=== PATIENT | male | born 1955 ===

== ENCOUNTER 2024-12-14 09:12 | Emergency (ER) | payer MEDICARE, SELFPAY ==
--- OUTSIDE RECORDS SUMMARY | 2006-12-31 08:27 | XMS_ITS | Continuity of Care Document ---
Author Organization [facility] Address [address] [place] [address] [address] [place] [address] Phone Care Team Providers Care Wedding Decorator Name Role Phone Penn OD, Rashawn Unavailable Unavailable Procedures Procedure Date Office/outpatient Visit, Est Remove Foreign Body From Eye Advance Directives Directive Yes / No Effective Date File Name No Information Encounters Encounter Description Practice Location Reason(s) For Visit Diagnoses Date Provider Providers Copied on Encounter Office/outpat ient Visit, Est [facility], [address] [place] [address] [address], [place], [place], [id number], tel:[phone] [facility] No Information 0-200 7 Penn OD Rashawn. [address] , [address], [place], [address], [place]. tel:[phone] [facility], [address] [place] [address] [address], [place], [place], [id number], tel:[phone] [facility] No Information 3-200 7 Penn OD Rashawn. [address] , [address], [place], [address], [place]. tel:[phone] Family History Family Member Type Diagnosis Age At Onset No Information Payers Payer name Insurance type Covered democrat ID Authorgenea joya(s) Kassidy Smith [employer] [facility] [id number] Social History Type Description Quantity Date Captured Comments Sex Male Smoking Status No Information Chief Complaint And Reason For Visit No Information Reason For Referral Reason For Referral No Information History Of Present Illness Encounter Date Complaint History Of Prese nt Illness No Information Functional Status Date Functional Assessmen t No Information Instructions Date Instruction Additional Infor mation No Information Assessments Type Assessment Date No Information Patient Care Teams Name Effective Dates (start - stop) Status Members No Information
--- OUTSIDE RECORDS SUMMARY | 2024-01-13 08:00 | XMS_ITS ---
Author Organization Page S K[facility] Rol[facility] Address [address] [place] [address] Care Team Providers Care Cooking Instructor Name Role Phone Ashley Rdz Primary Care Provider UnavailCatie Betancourt Unavailable [phone] REASON FOR VISIT 1 week f/u stitch removal Encounters Encounter Location Date Provider Diagnosis [address] [facility] [address] [id number] 01/13/2024 Catie Allison Plan Of Treatment No Information Progress Notes * Sekou BRAROB:[birth year] (69 yo M)Acc No.[id number]:01/13/2024 Patient: Ziggy YEAGER Provider: Kelsea Allison DPM, DABPM :1955 A ge:68 Y S ex:Male Date:01/13/2024 Address:[address] [facility] Pcp:Ashley Rdz Subjective: * Chief Complaints: * 1 . 1 week f/u stitch removal. * Medical History: Objective: * Vitals: Assessment: Plan: * Treatment: * Billing Information: * Visit Code: * Procedure Codes: * Electronic signature of Isidra Allison DPM DABPM on 12/14/2024 at 10:02 AM INSURANCE CODER Sign off status: Pending * Provider: Kelsea Allison DPM, DABPM Date: 03/15/2023 Generated for Koby cifuentes/Tay/Kristoferitting on: 1 02/14/2024 10:02 AM INSURANCE CODER
--- OUTSIDE RECORDS SUMMARY | 2024-01-27 07:00 | XMS_ITS ---
Author Organization Page [facility]odi Rol[facility] Address [address] [place] [address] Care Team Providers Care Seed Corn Manager Production Name Role Phone Ashley Rdz Primary Care Provider UnavailCatie Betancourt Unavailable [phone] REASON FOR VISIT 2 week f/u Encounters Encounter Location Date Provider Diagnosis [facility] [address] [id number] 01/27/2024 Catie Allison Plan Of Treatment No Information Progress Notes * Sekou BRAROB:[birth year] (69 yo M)Acc No.[id number]:01/27/2024 Patient: Ziggy YEAGER Provider: Kelsea Allison DPM, DABPM :1955 A ge:68 Y S ex:Male Date:01/27/2024 Address:[address] [id number] Pcp:Ashley Rdz Subjective: * Chief Complaints: * 1 . 2 week f/u. * Medical History: Objective: * Vitals: Assessment: Plan: * Treatment: * Billing Information: * Visit Code: * Procedure Codes: * Electronic signature of Isidra Allison DPM DABPM on 12/14/2024 at 10:02 AM MOBILE APPLICATION DEVELOPMENT LEAD Sign off status: Pending * Provider: Kelsea Allison DPM, DABPM Date: 03/29/2023 Generated for Koby cifuentes/Tay/Franco on: 02/14/2024 10:02 AM MOBILE APPLICATION DEVELOPMENT LEAD
[2024-12-14 09:14] VITALS: BP 109/64; PULSE 100; RESP 24; TEMP 36.4; O2SAT 96
--- NOTE | 2024-12-14 09:45 | PC.NURSE ---
Nose clamp removed. No bleeding at this time
[2024-12-14] MEDS: OXYMETAZOLINE HCL 0.05% NAS 15 ML BTL (*BKC) 1 SPRAY NASAL (09:53)
--- OUTSIDE RECORDS SUMMARY | 2024-12-14 10:02 | XMS_ITS | Encounter Summary ---
Author Organization [facility] Address [address] [place] [address] Phone Care Team Providers Care Design Engineering Manager Name Role Phone Diaz Saucedo MD Primary Care Provider [phone] Geovanni Aviles MD Unavailable Siddharth Maurer MD Unavailable [phone] Elis Hidalgo RN Unavailable Unavailab le Reason for Visit * Reason Comments Medication Refill Encounter Details Date Type Department Care Team (Late st Contact Info) Description 07/27/2021 Refill [facility] [address] [place] [address] [place] [address] Siddharth Maurer MD [address] [place] [address] [place] [address] Medication Refill Social History Tobacco Use Types Packs/Day Years Used Date Smoking Tobacco: Never Smokeless Tobacco: Never Alcohol Use Standard Drinks/Week Comments No 0 (1 standard drink = 0.6 oz pur e alcohol) former PHQ-2 Answer Date Recorded Total Score - Questions 1-9 0 07/12 Sex and Gender Information Value Date Recorded Sex Assigned at Male 11/13/2023 11:06 AM CDT Legal Sex Male 7:06 PM CDT Gender Identity Male 11/13/2023 11:06 AM CDT Sexual Orientation Not on file COVID-19 Exposure Response Date Recorded In the last 10 days, have yo u been in contact with someone who was confirmed or suspected to have Coronavirus/COVID-19? No / Unsure 07/27/2021 9:37 AM CDT documented as of this encounter Miscellaneous Notes * Telephone Encounter - Maty So LPN - 07/27/2021 9:20 AM CDT Order printed and mailed to patient. documented in this encounter Plan of Treatment Upcoming Encounters Date Type Department Care Team (Late st Contact Info) Description 04/02/2025 8:30 AM ANTIQUER Office Visit [address] [place] [id number] Siddharth Maurer MD [address] [place] [address] [place] [address] [phone] documented as of this encounter Visit Diagnoses Diagnosis Prostate cancer Malignant neoplasm of prostate Other male erectile dysfunction documented in this encounter Additional Health Concerns Assessment Noted Time PHQ-9 Depression Total Score: 0 12/16/19 21 9:34 AM CDT documented as of this encounter Care Teams Design Engineering Manager Relationship Specialty Start Date End Date Diaz Saucedo MD PCP - General Family Medicine 09/19/15 Geovanni Aviles MD [address] [place] [address] [place] [id number] [phone] Consulting Physician Oncology 09/19/15 Siddharth Maurer MD [address] [place] [address] [address] [place] [address] Consulting Physician Radiation Oncology 03/20/17 Elis Hidalgo, RN [place] Oncology Nurse Navigator Oncology 07/15/19 03/26/24 documented as of this encounter
--- OUTSIDE RECORDS SUMMARY | 2024-12-14 10:02 | XMS_ITS | Encounter Summary ---
Author Organization [facility] Address [address] [place] [address] Phone Care Team Providers Care Stationary Engineer Refrigeration Name Role Phone Diaz Saucedo MD Primary Care Provider [phone] Geovanni Aviles MD Unavailable Siddharth Maurer MD Unavailable [phone] Elis Hidalgo RN Unavailable Unavailab le Reason for Visit * Reason Comments Medication Refill Encounter Details Date Type Department Care Team (Late st Contact Info) Description 05/10/2022 Refill [facility] [address] [place] [address] [place] [address] Siddharth Maurer MD [address] [place] [address] [place] [address] Medication Refill Social History Tobacco Use Types Packs/Day Years Used Date Smoking Tobacco: Never Smokeless Tobacco: Never Alcohol Use Standard Drinks/Week Comments No 0 (1 standard drink = 0.6 oz pur e alcohol) former PHQ-2 Answer Date Recorded Total Score - Questions 1-9 0 09/2021 Sex and Gender Information Value Date Recorded Sex Assigned at Male 11/13/2023 11:06 AM CDT Legal Sex Male 7:06 PM CDT Gender Identity Male 11/13/2023 11:06 AM CDT Sexual Orientation Not on file COVID-19 Exposure Response Date Recorded In the last 10 days, have yo u been in contact with someone who was confirmed or suspected to have Coronavirus/COVID-19? No / Unsure 04/26/2022 9:24 AM CDT documented as of this encounter Plan of Treatment Upcoming Encounters Date Type Department Care Team (Late st Contact Info) Description 04/02/2025 8:30 AM BOTTOM CAGER Office Visit [address] [place] [address] Siddharth Maurer MD [address] [place] [address] [address] [place] [address] [phone] documented as of this encounter Visit Diagnoses Diagnosis Prostate cancer Malignant neoplasm of prostate Other male erectile dysfunction documented in this encounter Additional Health Concerns Assessment Noted Time PHQ-9 Depression Total Score: 0 12/16/19 21 9:34 AM CDT documented as of this encounter Care Teams Stationary Engineer Refrigeration Relationship Specialty Start Date End Date Diaz Saucedo MD PCP - General Family Medicine 09/19/15 Geovanni Aviles MD [address] [place] [address] [place] [address] [phone] Consulting Physician Oncology 09/19/15 Siddharth Maurer MD [address] [place] [address] [place] [address] Consulting Physician Radiation Oncology 03/20/17 Elis Hidalgo RN [place] Oncology Nurse Navigator Oncology 07/15/19 03/26/24 documented as of this encounter
--- OUTSIDE RECORDS SUMMARY | 2024-12-14 10:02 | XMS_ITS | Patient Health Record ---
Author Organization Page S Kodi Rolle [facility] Address [address] [place] [address] Care Team Providers Care Utility Clerk Name Role Phone Ashley Rdz Primary Care Provider Catie Gunn Unavailable [phone] Allergies No Known Allergies Reason For Referral No Information Medications Medication SIG (Take, Route, Frequency, Duration) Notes Start Date End Date Status NIFEdipine ER Osmotic Release 90 MG Oral; Duration: 90 Days Act ofelia Montelukast Sodium 10 MG Oral; Duration: 90 Days Active Diclofenac Sodium 75 MG Oral; Duration: 90 Days Active Social History Tobacco Use: Social History Observation Description Date Details (start date - stop date) Never Smoker NA - NA Tobacco Use/Smoking Question Answer Notes Tobacco use: nonsmoker Problems Problem Type SNOMED Code ICD Code Onset Dates Problem Status W/U Status Risk Notes Problem Chronic ulcer of foot (556713962) Non-pressure chronic ulcer of other part of left foot with fat layer exposed (L97.522) Active confirmed Problem Acquired hammer toe of left foot (021689059919223 3) Hammer toe of left foot (M20.42) Active confirmed Problem Acquired hallux varus (71878400) Hallux malleus of right foot (M20.31) Active confirmed 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 Vital Signs Weight-kg 81.65 kg 08/03/2024 Height 66 in 08/03/2024 Weight 180 lbs 08/03/2024 BMI 29.05 kg/m2 08/03/2024 Encounters Encounter Location Date Provider Diagnosis [facility] [address] [id number] 12/20/2023 Catie Keegan Metatarsalgia, right foot M77.41 and Hallux malleus of right foot M20.31 [facility] [address] [id number] 12/27/2023 Catie [place] Hallux malleus of right foot M20.31 ; Srcfzlc-Bldzl-Zybk h disease G60.0 and Metatarsalgia, right foot M77.41 [facility] [address] [id number] 01/06/2024 Catie Keegan Hallux malleus of right foot M20.31 ; Yfeabvx-Cknay-Btsz h disease G60.0 and Metatarsalgia, right foot M77.41 [facility] [address] [id number] 01/13/2024 Catie Keegan Hallux malleus of right foot M20.31 ; Mpsusdy-Vkpxb-Qiqj h disease G60.0 and Metatarsalgia, right foot M77.41 [facility] [address] [id number] 02/10/2024 Catie [place] Nail dystrophy L60.3 ; Uypmhmi-Dzedu-Nhlw h disease G60.0 ; Pain in right toe(s) M79.674 ; Pain in left toe(s) M79.675 and Callus L84 [facility] [address] [id number] 03/23/2024 Catie [place] Quuxvll-Dlrmg-Yczn h disease G60.0 [facility] [address] [id number] 05/04/2024 Catie [place] Nail dystrophy L60.3 ; Hzptrov-Rrjtx-Lyov h disease G60.0 ; Pain in right toe(s) M79.674 ; Pain in left toe(s) M79.675 and Callus L84 [facility] S [facility] [address] [facility] [place], [place] [id number] 08/03/2024 Catie [place] Nail dystrophy L60.3 ; Ypxxuwt-Wvksg-Dxqw h disease G60.0 ; Pain in right toe(s) M79.674 ; Pain in left toe(s) M79.675 and Callus L84 [place] [facility] [facility] [address] [place], [place] [id number] 12/20/2023 Catie Allison [facility] [address] [place] [address] 08/04/2024 Catie Allison Assessments Encounter Date Diagnosis (ICD Code) Assessment Notes Treatment Notes Treatment Clinical Notes Section Notes 12/20/2023 Metatarsalgia, right foot (ICD-10 - M77.41) 12/27/2023 Hallux malleus of right foot (ICD-10 - M20.31) 12/27/2023 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 08/03/2024 Nail dystrophy (ICD-10 - L60.3) Manual surgical and electric debridement of toenails 1-5 b/l by 25% to achieve reduction in length and thickness. 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 No ulcer(s). 08/03/2024 Callus (ICD-10 - L84) Pared callus(es) x1 sterile 15 blade to fibrous base. No ulcer(s). 12/27/2023 Other Dressings removed. Foot is doing well. Continue with clean sock and post op shoe with crutches as needed to keep pressure off forefoot. Elevate at rest. Return in 1 week for suture removal. Call with any problems. 01/06/2024 Other Dressings removed. Foot is doing well. Continue with clean sock and post op shoe with crutches as needed to keep pressure off forefoot. Elevate at rest. Return in 1 week for suture removal. Call with any problems. 01/13/2024 Other Sutures removed . Foot is doing well. Continue with clean sock and post op shoe with crutches as needed to keep pressure off forefoot. Elevate at rest. Call with any problems. 02/10/2024 Other 03/23/2024 Other Dispensed inserts. 05/04/2024 Other Plan Of Treatment No Information Insurance Providers Payer Name Payer Address Payer Phone Subscriber Number Group Number Insured Name Patient Relationship to Insured Coverage Start Date Coverage End Date [employer] [address] [address] [place] [address] [id number] Ziggy Kelly Self - patient is the insured [employer] Medicare Supplement [address] [address] AISHA TAMAYO [phone] [id number] Seferino falk Ziggy Self - patient is the insured Medical (General) History Medical History History ICD Code asthma blood disorder CLL cancer high blood pressure heartburn lung disorder CMT Surgical History Surgery Date(Month/Year) L foot #3 partial amp. both legs both feet R forearm tenotomy R hallux / possible arthroplasa R 5th metatarsal head resection
--- OUTSIDE RECORDS SUMMARY | 2024-12-14 10:02 | XMS_ITS | Encounter Summary ---
Author Organization [facility] Address [address] [place] [address] Phone Care Team Providers Care Software Applications Engineer Name Role Phone Diaz Saucedo MD Primary Care Provider [phone] Geovanni Aviles MD Unavailable Siddharth Maurer MD Unavailable [phone] Elis Hidalgo RN Unavailable Unavailab le Reason for Visit * Reason Comments Medication Refill Encounter Details Date Type Department Care Team (Late st Contact Info) Description 07/25/2021 Refill [facility] [address] [place] [address] [place] [address] Siddharth Maurer MD [address] [place] [address] [place] [address] Medication Refill Social History Tobacco [...] st Contact Info) Description 04/02/2025 8:30 AM BASKET WEAVER Office Visit [address] [place] [address] Siddharth Maurer MD [address] [place] [address] [place] [address] documented as of this encounter Visit Diagnoses Diagnosis Prostate cancer- Primary Malignant neoplasm of prostate Other male erectile dysfunction documented in this encounter Additional Health Concerns Assessment Noted Time PHQ-9 Depression Total Score: 0 12/16/19 21 9:34 AM CDT documented as of this encounter Care Teams Software Applications Engineer Relationship Specialty Start Date End Date Diaz Saucedo MD PCP - General Family Medicine 09/19/15 Geovanni Aviles MD [address] [place] [address] [place] [address] [phone] Consulting Physician Oncology 09/19/15 Siddharth Maurer MD [address] [place] [address] [place] [address] Consulting Physician Radiation Oncology 03/20/17 Elis Hidalgo RN [place] Oncology Nurse Navigator Oncology 07/15/19 03/26/24 documented as of this encounter
--- OUTSIDE RECORDS SUMMARY | 2024-12-14 10:02 | XMS_ITS | Encounter Summary ---
Author Organization [facility] Address [address] [place] [address] Phone Care Team Providers Care Product Support Manager Name Role Phone Diaz Saucedo MD Primary Care Provider [phone] Geovanni Aviles MD Unavailable Siddharth Maurer MD Unavailable [phone] Elis Hidalgo RN Unavailable Unavailab le Reason for Visit * Reason Comments Medication Refill Encounter Details Date Type Department Care Team (Late Contact Info) Description 06/15/[address] [place] [address] Siddharth Maurer MD [address] [place] [address] Medication Refill Social History Tobacco Use [...] AM CDT Sexual Orientation Not on file documented as of this encounter Plan of Treatment Upcoming Encounters Date Type Department Care Team (Late st Contact Info) Description 04/02/2025 8:30 AM CELLAR PUMPER Office Visit [address] [place] [phone] Siddharth Maurer MD [address] [place] [address] [place] [address] documented as of this encounter Visit Diagnoses Diagnosis Prostate cancer Malignant neoplasm of prostate Other male erectile dysfunction documented in this encounter Additional Health Concerns Assessment Noted Time PHQ-9 Depression Total Score: 0 12/16/19 21 9:34 AM CDT documented as of this encounter Care Teams Product Support Manager Relationship Specialty Start Date End Date Diaz Saucedo MD PCP - General Family Medicine 09/19/15 Geovanni Aviles MD [address] [place] [address] [address] [place] [id number] [phone] Consulting Physician Oncology 09/19/15 Siddharth Maurer MD [address] [place] [address] [address] [place] [id number] Consulting Physician Radiation Oncology 03/20/17 Elis Hidalgo, RN [place] Oncology Nurse Navigator Oncology 07/15/19 03/26/24 documented as of this encounter
--- OUTSIDE RECORDS SUMMARY | 2024-12-14 10:02 | XMS_ITS | Clinical Summary ---
Author Organization [facility] Address [address] [place] [address] Phone Care Team Providers Care Cancellation Clerk Name Role Phone Diaz Saucedo MD Primary Care Provider [phone] Allergies No known active allergies Medications losartan (COZAAR) 25 mg tablet Take 25 mg by mouth every day Active NIFEdipine (PROCARDIA XL) 90 mg extended release tablet Take 90 mg by mouth every day Active albuterol HFA (VENTOLIN HFA) 90 mcg/actuation inhaler Take 2 puffs inhaled by mouth every 4 (four) hours as needed for shortness of breath Active cyclobenzaprine 10 mg tablet Take 10 mg by mouth 3 (three) times daily as needed for muscle spasm Active Active Problems Problem Noted Date Diagnosed Date Acute non-ST elevation myocardial infarction (NS LONG) 11/05/2024 Cardiogenic shock 11/05/2024 Acute HFrEF (heart failure with reduced ejection fraction) 11/05/2024 Acute pulmonary edema 11/05/2024 CAD, multiple vessel 11/05/2024 Severe mitral regurgitation 11/05/2024 Acute hypoxic respiratory failure 11/04/2024 Encounters Date Type Department Care Team Description 11/05/2024 1:00 PM CDT - 11/05/2024 2:00 PM CDT Surgery [facility] Proc [facility] [place] [address] [place] [address] Ismael Talbot MD R/L HEART CATHETERIZATION 11/04/2024 8:15 PM CDT - 11/07/2024 5:01 AM CDT Hospital Encounter [facility] [address] [place] [address] Maroof, MD Ashley Cheung Saad, MD Shodunke, Temitope, MD NSTEMI (non-ST elevated myocardial infarction) ([facility]) (Primary Dx); Acute hypoxic respiratory failure (CMS-HCC); Cardiogenic shock (CMS-HCC); Acute congestive heart failure, unspecified heart failure type (CMS-HCC) Discharge Disposition: Discharge to Short [facility] 11/04/2024 3:55 PM CDT Diagnostic Imaging Outside Facility Radiology 11/04/2024 3:05 PM CDT Diagnostic Imaging Outside Facility Radiology 11/04/2024 Orders Only Outside Facility Radiology Ajith Noe MD 11/04/2024 Orders Only Outside Facility Radiology Ajith Noe MD from Last 3 Months Social History Tobacco Use Types Packs/Day Years Used Date Smoking Tobacco: Never Assessed Sex and Gender Information Value Date Recorded Sex Assigned at Not on file Legal Sex Male 4:07 PM CDT Gender Identity Not on file Sexual Orientation Not on file Last Filed Vital Signs Vital Sign Reading Time Taken Comments Blood Pressure 121/58 11/07/2024 2:00 AM CDT Pulse 101 11/05/2024 7:48 PM CDT Temperature 38 C (100.4 F) 11/07/2024 1:00 AM CDT Respiratory Rate 14 11/07/2024 2:00 AM CDT Oxygen Saturation 96% 11/07/2024 2:00 AM CDT Inhaled Oxygen Concentration - - Weight 77 kg (169 lb 12.1 oz) 11/06/2024 6:47 AM CDT Height 170.2 cm (5' 7.01) 11/05/2024 7:48 PM CD T Body Mass Index 26.58 11/05/2024 7:48 PM CDT Plan of Treatment Health Maintenance Due Date Last Done Comments Diagnostic Colonoscopy 1953 Depression Screening 1965 DTaP/Tdap/Td Vaccines (1 - Tdap) 1972 Pneumococcal Vaccines (50+) (1 of 2 - PCV) [address] ACSVD [address] Colonography 1998 Colorectal Cancer Screening 1998 FIT-DNA (Cologuard) 1998 Fecal Immunochemical Testing (FIT) 1998 Fecal Occult Blood (FOBT) 1998 Flexible Sigmoidoscopy 1998 Screening Colonoscopy 1998 HCPOA Document on File 10/05/2003 Zoster (Shingles) Vaccine (1 of 2) 10/05/2003 RSV Vaccine (60+/) (1 - Risk 60-74 years 1-dose series) 2013 Eligible for Initial Annual Medicare Wellness Exam 04/11/2014 Fall Screening 2018 COVID-19 Vaccine ( - season) 2024 Influenza Vaccine (#1) 2024 Screening for Diabetes 11/08/2027 , 11/06/2024, 11/06/2024, Additional history exists HIB Vaccines Aged Out No longer eligi ble based on patient's age to complete this topic HPV Vaccines Aged Out No longer eligi ble based on patient's age to complete this topic Hepatitis A Vaccines Aged Out No long er eligible based on patient's age to complete this topic Hepatitis B Vaccines Aged Out No long er eligible based on patient's age to complete this topic IPV Vaccines Aged Out No longer eligi ble based on patient's age to complete this topic Meningococcal B Vaccine Aged Out No l onger eligible based on patient's age to complete this topic Meningococcal Vaccine (ACWY) Aged Out No longer eligible based on patient's age to complete this topic Rotavirus Vaccines Aged Out No longer eligible based on patient's age to complete this topic Procedures Procedure Name Priority Date/Time Associated Diagnosis Comments MAGNESIUM Routine 11/07/2024 1:36 AM CDT COMPREHENSIVE METABOLIC PANEL Routine 11/07/2024 1:36 AM CDT CBC W/O DIFF Routine 11/07/2024 1:36 AM CDT GLUCOSE, POC Routine 11/06/2024 11:25 PM CDT UFH LEVEL, ANTI-XA Timed 11/06/2024 10 :28 PM CDT GLUCOSE, POC Routine 11/06/2024 7:25 PM CDT GLUCOSE, POC Routine 11/06/2024 5:19 PM CDT LOWER RESPIRATORY CULTURE Routine 11/06/2024 12:30 PM CDT SPUTUM SCREEN Routine 11/06/2024 12:30 PM CDT GLUCOSE, POC Routine 11/06/2024 12:06 PM CDT ECG 12 LEAD STAT 11/06/2024 11:40 AM CDT TSH Urgent 11/06/2024 9:35 AM CDT PROCALCITONIN Timed 11/06/2024 9:35 AM CDT LIPID PANEL Timed 11/06/2024 9:35 AM CDT UFH LEVEL, ANTI-XA Timed 11/06/2024 9: 35 AM CDT GLUCOSE, POC Routine 11/06/2024 7:48 AM CDT ABG 11/06/2024 3:45 AM CDT ABG 11/06/2024 3:45 AM CDT GLUCOSE, POC Routine 11/06/2024 3:26 AM CDT UFH LEVEL, ANTI-XA Timed 11/06/2024 2: 15 AM CDT CBC W/DIFF Timed 11/06/2024 2:15 AM CDT COMPREHENSIVE METABOLIC PANEL Timed 11/06/2024 2:15 AM CDT MAGNESIUM Timed 11/06/2024 2:15 AM CDT ABG 11/06/2024 1:41 AM CDT GLUCOSE, POC Routine 11/05/2024 11:15 PM CDT XR CHEST AP OR PA ONLY STAT 8:34 PM CDT GLUCOSE, POC Routine 11/05/2024 7:35 PM CDT UFH LEVEL, ANTI-XA Timed 11/05/2024 7: 09 PM CDT INTRA-AORTIC BALLOON PUMP INSERTION Routine 11/05/2024 4:30 PM CDT NSTEMI (non-ST elevated myocardial infarction) (CMS-HCC) Acute hypoxic respiratory failure (CMS-HCC) Cardiogenic shock (CMS-HCC) Acute congestive heart failure, unspecified heart failure type (CMS-HCC) PROJECT MANAGER/DESIGN MANAGER US VENOUS ACCESS Routine 11/05/2024 4:30 PM CDT NSTEMI (non-ST elevated myocardial infarction) (CMS-HCC) Acute hypoxic respiratory failure (CMS-HCC) Cardiogenic shock (CMS-HCC) Acute congestive heart failure, unspecified heart failure type (CMS-HCC) R/L HEART CATHETERIZATION Routine 11/05/2024 4:30 PM CDT NSTEMI (non-ST elevated myocardial infarction) (CMS-HCC) Acute hypoxic respiratory failure (CMS-HCC) Cardiogenic shock (CMS-HCC) Acute congestive heart failure, unspecified heart failure type (CMS-HCC) COMPLETE ADULT ECHO WITH CONTRAST Routine 11/05/2024 10:37 AM CDT GLUCOSE, POC Routine 11/05/2024 7:33 AM CDT UFH LEVEL, ANTI-XA STAT 11/05/2024 6: 09 AM CDT ABG 11/05/2024 5:26 AM CDT PTT Timed 11/05/2024 4:41 AM CDT ECG 12 LEAD STAT 11/05/2024 4:22 AM CDT GLYCO HB A1C Urgent 11/05/2024 3:36 AM CDT CBC W/O DIFF Routine 11/05/2024 3:36 AM CDT GLUCOSE, POC Routine 11/05/2024 3:[address] CTA PE CHEST Routine 11/05/2024 2:33 AM CDT ECG 12 LEAD STAT 11/05/2024 12:31 AM CDT GLUCOSE, POC Routine 11/05/2024 12:15 AM CDT BLOOD CULTURE, ROUTINE Routine 11:28 PM CDT BLOOD CULTURE, ROUTINE Routine 11:28 PM CDT GLUCOSE, POC Routine 11/04/2024 11:22 PM CDT MRSA SCREENING BY PCR Routine 11/04/2024 10:31 PM CDT PROTIME (INR) STAT 11/04/2024 10:07 PM CDT UFH LEVEL, ANTI-XA STAT 11/04/2024 10 :07 PM CDT PTT STAT 11/04/2024 10:07 PM CDT XR CHEST AP OR PA ONLY STAT 9:17 PM CDT PROCALCITONIN STAT 11/04/2024 9:12 PM CDT B-NATRIURETIC PEPTIDE STAT 11/04/2024 9:12 PM CDT MAGNESIUM STAT 11/04/2024 9:12 PM CDT COMPREHENSIVE METABOLIC PANEL STAT 11/04/2024 9:12 PM CDT CBC W/DIFF STAT 11/04/2024 9:12 PM CDT TROPONIN, HIGH SENSITIVITY STAT 11/04/2024 9:12 PM CDT TRIGLYCERIDES Routine 11/04/2024 9:12 PM CDT ECG 12 LEAD STAT 11/04/2024 8:55 PM CDT ABG 11/04/2024 8:31 PM CDT GLUCOSE, POC Routine 11/04/2024 8:30 PM CDT XR CHEST OUTSIDE STUDY Routine 5 4:50 PM CDT XR CHEST OUTSIDE STUDY Routine 5 4:50 PM CDT from Last 3 Months Results * (ABNORMAL) COMPREHENSIVE METABOLIC PANEL (11/07/2024 1:36 AM CDT) Only the most recent of3 resultswithin the time period is included. CALCIUM 7.9(L) 8.9 - 10.6 mg/dL [facility] GLUCOSE 114(H) 74 - 100 mg/dL [facility] BUN 63(H) 8 - 26 mg/dL [facility] CREATININE 2.07(H) 0.70 - 1.30 mg/dL [facility] TOTAL PROTEIN 6.1 6.0 - 8.0 g/dL [facility] ALBUMIN 2.2(L) 3.4 - 4.8 g/dL [facility] BILIRUBIN, TOTAL 0.2 0.2 - 1.2 mg/dL [facility] AST 213(H) 9 - 43 U/L [facility] ALT 159(H) 0 - 45 U/L [facility] ALKALINE PHOSPHATASE 63 40 - 150 U/L [facility] SODIUM 144 136 - 145 mmol/L [facility] POTASSIUM 3.6 3.5 - 5.1 mmol/L [facility] CHLORIDE 104 98 - 107 mmol/L [facility] CO2 29.0 22.0 - 29.0 mmol/L [facility] GFR: CKD-EPI 2020 CREAT 34 arbitrary unit [facility] Comment: eGFR of 90 or higher is in the normal range eGFR of 60-89 may mean early-stage kidney disease eGFR of 15-59 may mean kidney disease eGFR below 15 may mean kidney failure NOTE: The GFR estimate is reported in ml/min/1.73 square meters. Effective 07/12/22 the reported GFR estimate is calculated using the CKD-EPI 2020 equation and is intended only for the assessment of chronic kidney disease. [facility], [address] [place] [address] 11/07/2024 1:36 AM CDT 11/07/2024 2:31 AM CDT Nolvia Johnelizabeth MUSTAFA HEM/CHEM/IMMUN-BLOOD Final Resu lt Performing Organization Address [facility]/ZIP Co de Phone Number [facility] [address] [place] [phone], [place] * MAGNESIUM (11/07/2024 1:36 AM CDT) Only the most recent of3 resultswithin the time period is included. MAGNESIUM 2.6 1.6 - 2.6 mg/dL [facility] Comment:[facility], [address] [place] [phone] 11/07/2024 1:36 AM CDT 11/07/2024 2:31 AM CDT Nolvia Johnelizabeth CANTU BS HEM/CHEM/IMMUN-BLOOD Final Resu lt Performing Organization Address [facility] Co de Phone Number [facility] [address] [place] [phone], [place] * (ABNORMAL) CBC W/O DIFF (11/07/2024 1:36 AM CDT) Only the most recent of2 resultswithin the time period is included. WBC 11.25(H) 4.00 - 11.00 10*3/uL [facility] RBC 4.59 4.10 - 5.70 10*6/uL [facility] HGB 12.0 12.0 - 18.0 g/dL [facility] HCT 37.3 37.0 - 51.0 % [facility] MCV 81.3 80.0 - 100.0 fL [facility] MCH 26.1(L) 27.0 - 33.0 pg [facility] MCHC 32.2 32.0 - 36.0 g/dL [facility] RDW 14.0 12.0 - 15.0 % [facility] RDW-SD 41.1 36.7 - 46.1 fL [facility] PLATELET 155 140 - 400 10*3/uL [facility] MPV 12.1(H) 9.0 - 12.0 fL [facility] Comment:[facility], [address] [place] [phone] 11/07/2024 1:36 AM CDT 11/07/2024 2:31 AM CDT Narrative [facility] - 11/07/2024 2:42 AM CDT Heparin Therapy Monitoring us Miroslava CANTU BS HEM/CHEM/IMMUN-BLOOD F inal Result [facility] [address] [place] [phone], [place] * (ABNORMAL) GLUCOSE, POC (11/06/2024 11:25 PM CDT) Only the most recent of13 resultswithin the time period is included. GLUCOSE, POC 129(H) 60 - 99 mg/dL [facility] Comment:[facility], [address] [place] [phone] 11/06/2024 11:2 5 PM CDT 11/06/2024 11:28 PM CDT us Lourdes Zuluaga MD HEM/CHEM/IMMUN-BLOOD Final Result Performing Organization Address [facility]/ZIP Co de Phone Number [facility] [address] [place] [phone], * UFH LEVEL, ANTI-XA (11/06/2024 10:28 PM CDT) Only the most recent of6 resultswithin the time period is included. ANTI-XA, UFH 0.4 IU/mL [facility] Comment: REFERENCE RANGE: UFH therapeutic range: Standard Intensity/DDZ-ON-Mzqlenkm-Bridging-ACS: 0.4-0.7 IU/mL Low Intensity/Cerbrovascular: 0.4-0.5 IU/mL [facility], [address] [place] [phone] 11/06/2024 10:2 8 PM CDT 11/06/2024 10:51 PM CDT Narrative [facility] - 11/06/2024 11:11 PM CDT heparin gtt titration Lourdes Zuluaga MD HEM/CHEM/IMMUN-BLOOD Final Result Performing Organization Address [facility] Co de Phone Number [facility] [address] [place] [phone], * (ABNORMAL) SPUTUM SCREEN (11/06/2024 12:30 PM CDT) Pathologist [facility] SPUTUM SCREEN Few squamous epithelial cells/lpf Few PMNs No organisms seen -RESLO (Lower Respiratory Culture) has been ordered. (A) [facility] SPECIMEN FROM TRACHEA OBTAINED BY ASPIRATION / Unknown 11/06/2024 12:30 PM CDT 11/06/2024 1:05 PM CDT Narrative [facility] - 11/06/2024 1:44 PM CDT [facility] [address] [place] [address] [phone] Source: Tracheal Aspirate Site: Nolvia CANTU BS MICROBIOLOGY Final Result Performing Organization Address [facility]/ZIP Co de Phone Number [facility] [address] [place] [phone], * LOWER RESPIRATORY CULTURE (11/06/2024 12:30 PM CDT) Pathologist [facility] LOWER RESPIRATORY CULT No growth 2 days. [facility] SPECIMEN FROM TRACHEA OBTAINED BY ASPIRATION / Unknown 11/06/2024 12:30 PM CDT 11/06/2024 1:05 PM CDT Narrative [facility] - 11/08/2024 9:08 AM CDT [facility] [address] [place] [address] [phone] Source: Tracheal Aspirate Site: us Nolvia MUSTAFA MICROBIOLOGY Final Result Performing Organization Address City/[facility]/ZIP Co de Phone Number [facility] [address] [place] [phone], * ECG 12 LEAD (11/06/2024 11:40 AM CDT) Only the most recent of4 resultswithin the time period is included. Pathologist [facility] REPORT COMPONENT Study Date: 11/06/2024 Confirmation Date: 11/06/2024 Test Reason : afib Vent. Rate : 120 BPM Atrial Rate : * BPM P-R Int : * ms QRS Dur : 108 ms QT Int : 350 ms P-R-T Axes : * 40 146 degrees QTc Int : 494 ms Atrial flutter with variable block Low voltage QRS ST & T wave abnormality, consider anterolateral ischemia Abnormal ECG Referred By: NOLVIA RICHEY Confirmed By: Claudio Corey MD [facility] 11/06/2024 11:4 0 AM CDT us Nolvia [facility] Final Resul t Performing Organization Address City/[facility]/ZIP Co de Phone Number [address] [phone], * PROCALCITONIN (11/06/2024 9:35 AM CDT) Only the most recent of2 resultswithin the time period is included. Pathologist [facility] PROCALCITONIN VALUE 0.78 ng/mL [facility] PROCALCITONIN COMMENTS see below [facility] Comment: Procalcitonin levels greater than or equal to 0.5 and less than 2.0 indicates a MODERATE RISK FOR PROGRESSION TO SEVERE SYSTEMIC INFECTION (severe sepsis/septic shock). Procalcitonin Value Interpretation < or = 0.5 ng/ml Low risk for progression to severe systemic infection. Systemic infection is not likely, local bacterial infection is possible. >0.5 and < or = Moderate risk for progression to severe 2.0 ng/ml systemic infection. Systemic infection is possible. >2 ng/ml High risk for progression to severe systemic infection. Systemic infection is likely unless other causes for elevated values are known. >10 ng/ml High likelihood of severe sepsis or septic shock. Correlate all values with clinical findings. Re-assessment of procalcitonin in 6-24 hours may be indicated. Reference ranges are applicable from 3 days after . This is a quantitative Immumoluminometric assay (BERT) to determine PROCALCITONIN levels in human plasma. [facility], [address] [place] [phone] 11/06/2024 9:35 AM CDT 11/06/2024 10:25 AM CDT Narrative [facility] - 11/06/2024 10:58 AM CDT ADD ON Storage down, unable to retrieve sample, please draw. us Nolvia John MUSTAFA HEM/CHEM/IMMUN-BLOOD Final Resu lt [facility] [address] [place] [phone], * (ABNORMAL) LIPID PANEL (11/06/2024 9:35 AM CDT) [facility] CHOLESTEROL, TOTAL 205(H) 0 - 200 mg/dL [facility] Comment: Child Range (mg/dL) : Desirable < 170 Borderline 170 to 199 High >= 200 Adult Range: Desirable < 200 Borderline 200 to 239 High >= 240 TRIGLYCERIDES 183 <150 mg/dL [facility] Comment: Normal < 150 Borderline High 150 to 199 High 200 to 499 Very High >= 500 The National Cholesterol Education Program (NCEP) Adult Treatment Panel III Report recommends the classification shown above. Laboratories should follow recommendations for lipid ranges effective in their locale if they differ from those of the NCEP. HDL CHOLESTEROL 51 40 - 60 mg/dL [facility] Comment: The National Cholesterol Education Program (NCEP) recommends using fasting specimens for a lipoprotein profile. If the specimen is nonfasting, only the values for total cholesterol and HDL cholesterol are usable. LDL CHOLESTEROL 117 <100 mg/dL [facility] Comment:[facility], [address] [place] [phone] 11/06/2024 9:35 AM CDT 11/06/2024 10:25 AM CDT [facility] - 11/06/2024 10:38 AM CDT ADD ON Storage down, unable to retrieve sample, please draw. Javon MUSTAFA HEM/CHEM/IMMUN-BLOOD Final R esult Performing Organization Address City/[facility]/ZIP Co de Phone Number [facility] [address] [place] [phone], [place] * TSH (11/06/2024 9:35 AM CDT) TSH 0.865 0.350 - 4.940 u[IU]/mL [facility] Comment:[facility], [address] [place] [address] 11/06/2024 9:35 AM CDT 11/06/2024 2:04 PM CDT [facility] - 11/06/2024 2:38 PM CDT ADD ON Storage down, unable to locate specimen. Please draw. us Javon MUSTAFA HEM/CHEM/IMMUN-BLOOD Final R esult Performing Organization Address [facility]/ZIP Co de Phone Number [facility] [address] [place] [phone], [place] * (ABNORMAL) ABG (11/06/2024 3:45 AM CDT) Only the most recent of5 resultswithin the time period is included. pH 7.334(L) 7.350 - 7.450 [facility] pCO2 47.1(H) 35.0 - 45.0 mmHg [facility] pO2 129.1(H) 80.0 - 100.0 mmHg [facility] Lactate 1.15 0.50 - 2.00 mmol/L [facility] tHb 14.3 12.0 - 18.0 g/dL [facility] O2HB 97.2 % [facility] COHb 0.3(L) 0.5 - 1.5 % [facility] MetHb 0.6 0.0 - 1.5 % [facility] HHB 1.9 % [facility] SpO2 98.1 % [facility] HCO3 24.5 22.0 - 26.0 mmol/L [facility] BE -1.7 -2.0 - 2.0 mmol/L [facility] Hct 42 37 - 50 % [facility] FIO2 60.0 % [facility] Modified Kunal test POS [facility] Mode VC/AC [facility] Patient room [id number] [facility] Sample type BLDA [facility] Drawn date and time 11/06/2024 3:41:55 AM [facility] Sampling site RR [facility] 11/06/2024 3:45 AM CDT Narrative [facility] - 11/06/2024 3:45 AM CDT The Hematocrit and Hemoglobin values reported on ABG results may vary from those reported from the main Laboratory, due to different testing methodologies used. For transfusion purposes, please use the main Laboratory for Hematocrit and Hemoglobin values. us Veronica Lovett MD RESP-DIAGN/ASSESS Final Resul t [facility] [address] [place] [address], * (ABNORMAL) CBC W/DIFF (11/06/2024 2:15 AM CDT) Only the most recent of2 resultswithin the time period is included. WBC 14.02(H) 4.00 - 11.00 10*3/uL [facility] RBC 5.08 4.10 - 5.70 10*6/uL [facility] HGB 13.5 12.0 - 18.0 g/dL [facility] HCT 43.0 37.0 - 51.0 % [facility] MCV 84.6 80.0 - 100.0 fL [facility] MCH 26.6(L) 27.0 - 33.0 pg [facility] MCHC 31.4(L) 32.0 - 36.0 g/dL [facility] RDW 14.2 12.0 - 15.0 % [facility] RDW-SD 43.8 36.7 - 46.1 fL [facility] PLATELET 189 140 - 400 10*3/uL [facility] MPV 11.5 9.0 - 12.0 fL [facility] SEG 73.2 % [facility] LYMPHOCYTE 17.4 % [facility] MONOCYTE 8.9 % [facility] EOSINOPHIL 0.0 % [facility] BASOPHIL 0.1 % [facility] IMMATURE GRANULOCYTE 0.4 % [facility] ABSOLUTE NEUTR 10.27(H) 1.60 - 7.70 10*3/uL [facility] ABSOLUTE LYMPH 2.44 1.00 - 4.90 10*3/uL [facility] ABSOLUTE MONO 1.25(H) 0.00 - 1.10 10*3/uL [facility] ABSOLUTE EOS 0.00 0.00 - 0.50 10*3/uL [facility] ABSOLUTE BASO 0.01 0.01 - 0.20 10*3/uL [facility] ABSOLUTE IMMATURE GRANULOCYTE 0.05 0.00 - 0.09 10*3/uL [facility] Comment:[facility], [address] [place] [phone] 11/06/2024 2:15 AM CDT 11/06/2024 2:50 AM CDT us Blanca CANTU BS HEM/CHEM/IMMUN-BLOOD Final R esult [facility] [address] [place] [phone], [place] * XR CHEST AP OR PA ONLY (11/05/2024 8:34 PM CDT) Only the most recent of2 resultswithin the time period is included. Anatomical Region Laterality Modality Chest N/A Digital Radiogra phy 11/05/2024 8:19 PM CDT Narrative 11/06/2024 12:45 AM CDT Accession Exam Completed Date/Time [id number] XR CHEST AP OR PA ONLY 11/05/2024 20:34 Requesting: KEITH PONCE XR CHEST AP OR PA ONLY PERFORMED ON 11/05/2024 8:19 PM HISTORY: [place] placement confirmation COMPARISON: Chest radiograph 11/04/2024 FINDINGS/ IMPRESSION: Compared to prior day chest radiograph: Interval placement of a [place] catheter which terminates in the right pulmonary artery. Increased airspace attenuation throughout the right lung compatible with worsening edema/infection. Stable position of endotracheal tube, enteric tube, and esophageal temperature probe. Electronically Signed and Authenticated by Marvel Oro MD 11/06/2024 00:45 Procedure Note Marvel Oro MD - 11/06/2024 Accession Exam CompletedDate/Time [id number] XR CHEST AP OR PA ONLY 520:34 Requesting: KEITH PONCE XR CHEST AP OR PA ONLY PERFORMED ON 11/05/2024 8:19 PM HISTORY: [place] placement confirmation COMPARISON: Chest radiograph 11/04/2024 FINDINGS/ IMPRESSION: Compared to prior day chest radiograph: Interval placement of a [place] catheter which terminates in the rightpulmonary artery. Increased airspace attenuation throughout the right lung compatible withworsening edema/infection. Stable position of endotracheal tube, enteric tube, and esophagealtemperature probe. Electronically Signed and Authenticated by Marvel Oro MD 11/06/2024 00:45 us Keith BARRIOS CHEST X-RAY Final Result * R/L HEART CATHETERIZATION, PROJECT MANAGER/DESIGN MANAGER US VENOUS ACCESS, INTRA-AORTIC BALLOON PUMP INSERTION (11/05/2024 4:30 PM CDT) Anatomical Region Laterality Modality X-Ray Angiograph y Narrative 11/05/2024 4:30 PM CDT Right atrial pressure is severely elevated. Pulmonary capillary wedge pressure is severely elevated with a prominent V-wave. Cardiac index is severely reduced. Severe multivessel coronary disease with: 70-80% stenosis of proximal to mid LAD. 99% stenosis of mid circumflex. 90% stenosis of mid RCA. Recommend heart team consultation for consideration of CABG plus MVR. IABP inserted for temporary hemodynamic stabilization. Good improvement noted in PA pressures post IABP insertion. Coronary Findings Diagnostic Dominance: Right Left Main: Diagnostic: The vessel was visualized by angiography, is large and is angiographically normal. Left Anterior Descending: Diagnostic: The vessel was visualized by angiography and is large. There is moderate disease throughout the vessel. The vessel is severely calcified. Prox LAD to Mid LAD lesion is 75% stenosed. The lesion is diffuse and segmental. First Diagonal Branch: The vessel is small. There is mild diffuse disease throughout the vessel. Second Diagonal Branch: The vessel is large. The vessel exhibits minimal luminal irregularities. Left Circumflex: Diagnostic: The vessel was visualized by angiography and is moderate in size. There is severe disease throughout the vessel. Prox Cx to Mid Cx lesion is 99% stenosed. The lesion is diffuse and segmental. First Obtuse Marginal Branch: The vessel is small. There is moderate diffuse disease throughout the vessel. Second Obtuse Marginal Branch: The vessel is moderate in size. There is moderate diffuse disease throughout the vessel. Right Coronary Artery: Diagnostic: The vessel was visualized by angiography and is large. There is severe disease throughout the vessel. Mid RCA to Dist RCA lesion is 90% stenosed. The lesion is diffuse. The lesion is severely calcified. Right Posterior Descending Artery: The vessel is large. There is mild diffuse disease throughout the vessel. RPDA lesion is 90% stenosed. The lesion is focal. First Right Posterolateral Branch: The vessel is moderate in size. There is mild diffuse disease throughout the vessel. Intervention No interventions have been documented. Left Ventricle Left ventricular end diastolic pressure was 48 mm Hg, post-A. Aortic Valve No pullback gradient across the aortic valve. Intraprocedure The risks, benefits, alternatives, and expected outcomes were explained in full to the next of kin and/or POA. The next of kin and/or POA verbalized understanding and wanted to proceed. Informed written consent was obtained and placed in the chart. The patient was brought to the Cardiac Catheterization Laboratory and prepped and draped in the usual sterile fashion. Time out was performed.. The patient received general anesthesia. The procedure was considered emergent based upon the clinical presentation. The patient was noted to have unstable (shock) hemodynamics at the start of the procedure. Arterial access: right radial. Right femoral for balloon pumpUnder ultrasound, the vessel was found to be patent. Using real-time ultrasound for guidance, the best access site was identified following which a single front wall puncture of the vessel was performed and the access needle was identified in the vessel lumen. A permanent image of the same was created and stored. Venous access: right internal jugular vein. Under ultrasound, the vessel was found to be patent. Using real-time ultrasound for guidance, the best access site was identified following which a single front wall puncture of the vessel was performed and the access needle was identified in the vessel lumen. A permanent image of the same was created and stored. Hemostasis was successfully obtained using TR Band compression device. Estimated blood loss is: Minimal. Syntax Score: >33 high IABP Insertion report: Right groin area was prepped in sterile fashion. Local anesthetic was administered with 1% lidocaine. Using micropuncture technique, retrograde right common femoral arterial access was obtained with placement of the 8.5 [place] balloon pump sheath sheath. An 0.25 IABP wire was then inserted, IABP was aspirated leaving one-way valve in place. The IABP was advanced over the guidewire into its proper position in the descending thoracic aorta, with the IAB catheter tip approximately 2 cm distal to the left subclavian artery. This was confirmed and directly visualized on fluoroscopy. The guidewire was removed. The inner lumen was aspirated and flushed. The IABP was connected to the pump. Counterpulsation was commenced at 1:1 augmentation. The pump was securely sutured in place. Distal pulses were palpated and found to be normal at the end of the procedure. Blood Products Blood Products Given: No Final Disposition Final Disposition of Patient: ICU Final Condition: stable and critical. Right Heart Cath Hemodynamics: Rhythm: sinus tachycardia Average heart rate during the procedure: 115 bpm. Right atrial pressure: 13 mmHg Right ventricular pressure: 60/14 mmHg Pulmonary artery pressure: 63/35 mmHg with a mean of 48 mmHg Pulmonary capillary wedge pressure: 39 mmHg. V wave pressure: 50 mm Hg Transpulmonary gradient: 9 mmHg Pulmonary vascular resistance: 2.8 Wood Units Systemic vascular resistance: 1481 dsc-5 Oxygen Saturations: Pulmonary artery: 55% Aorta: 88% Cardiac Outputs: Indirect Raquel Cardiac Output: 3.62 L/min Indirect Raquel Cardiac Index: 1.9 L/min/m2 Post IABP insertion: PA pressure 43/15 (26) mm Hg Contrast Max Creatinine Clearance = 54 Contrast Max = 189 us Bismark Salter MD PROJECT MANAGER/DESIGN MANAGER Final Result * COMPLETE ADULT ECHO WITH CONTRAST (11/05/2024 10:37 AM CDT) LVEF - ECHO 15 - 20% [facility] Anatomical Region Laterality Modality Ultrasound 11/05/2024 9:53 AM CDT Impressions 11/05/2024 11:16 AM CDT FINAL REPORT 11/05/2024 Patient Name: MAYKEL [facility] Num: [id number] Ordering Physician: MIROSLAVA UREÑA History: NSTEMI, Acute RF Patient Age [age] years old Order Number [id number] Patient Height 67.01 in Patient Weight 170.86 lbs Systolic Pressure 80 mmHg Diastolic Pressure 53 mmHg Heart Rate 109 bpm BSA 1.9 m^2 Procedure: Complete 2D echo with spectral/color Doppler and Definity [id number] Reason for Study: Concern for new onset heart failure with NSTEMI Interpretation Summary: The left ventricular systolic function is severely reduced. Ejection Fraction = 15 - 20%. There is akinesis of the basal to distal inferior, inferoseptal, lateral wall. Remaining segments hypokinetic. There is apical no thrombus. The right ventricle is normal size. The right ventricular systolic function is mild to moderately reduced . The left atrium is moderately enlarged. The right atrium is normal in size. There is a central jet causing severe mitral regurgitation. There is systolic reversal of pulmonary veins. The ERO by PISA is 0.83 cm2. The MR is likely due to lack of leaflet coaptation. Recommend MATTHEW for further evaluation. There is moderate tricuspid regurgitation. Right ventricular systolic pressure is elevated at 50-59mmHg. No pericardial effusion. IVC measures 1.[address] Salter and Dr Thompson informed. Narrative 11/05/2024 11:16 AM CDT Echo Findings Aortic Valve: Aortic valve is mildly thickened. The aortic valve is not well visualized. The aortic root is normal size. No aortic stenosis. There is no aortic regurgitation. Mitral Valve: Mitral valve thickening consistent with calcification and/or fibrosis. There is no mitral stenosis. There is a central jet causing severe mitral regurgitation. There is systolic reversal of pulmonary veins. The ERO by PISA is 0.83 cm2. The MR is likely due to lack of leaflet coaptation. Recommend MATTHEW for further evaluation. Tricuspid Valve: The tricuspid valve is not well visualized. There is moderate tricuspid regurgitation. Right ventricular systolic pressure is elevated at 50-59mmHg. Pulmonic Valve: The pulmonic valve is not well visualized. There is no significant pulmonary regurgitation. Right Ventricle: The right ventricle is normal size. The right ventricular systolic function is mild to moderately reduced . Right Atrium: The right atrium is normal in size. Left Atrium: The left atrium is moderately enlarged. Left Ventricle: The left ventricle is normal in size. There is normal left ventricular wall thickness. The left ventricular systolic function is severely reduced. Ejection Fraction = 15 - 20% There is akinesis of the basal to distal inferior, inferoseptal, lateral wall. Remaining segments hypokinetic. There is no thrombus. Pericardium: No pericardial effusion. Diastology: E / E' = Lat= 20.5 Med= 23.0 LA Volume Index = 47.5cc/m2. E / E' ratio is elevated suggestive of increased left atrial filling pressures. Greater Vessels: IVC measures 1.9 cm. Miscellaneous Findings: The contrast agent Definity was used to enhance this study. Tech Comments: Dr. Salter and Dr. Thompson present at bedside. Critical findings communicated. Echo Measurements MMode 2D Measurements and Calculations: Ao root diam 3 cm asc Aorta Diam 3.4 cm IVSd 1.1 cm LA dimension 4 cm LVIDd 5 cm LVIDs 4.7 cm LVLd ap2 9.5 cm LVLd ap4 9.4 cm LVLs ap2 8.5 cm LVLs ap4 8.6 cm LVOT area(traced) 3.1 cm^2 LVOT diam 2 cm LVPWd 1.1 cm RA A4Cs_phl 14.9 cm^2 RV Base_phl 4 cm RV Length_phl 7.6 cm RV Mid_phl 2.5 cm RVDd 3.7 cm RVIDd/LVIDd_phl 0.74 TAPSE_phl 0.91 cm Doppler Measurements and Calculations: MV dec time 0.09 sec PA acc time 0.07 sec Ao max PG 2.6 mmHg Ao mean PG 1.3 mmHg Ao V2 max 80.9 cm/sec Ao V2 mean 54.7 cm/sec Ao V2 VTI 8.5 cm AV VR_phl 0.67 ROYCE(VTI)/BSA_phl 1.1 Lat Peak E' Reji 5.1 cm/sec LV V1 max PG 1.2 mmHg LV V1 mean PG 0.62 mmHg LV V1 max 54 cm/sec LV V1 mean 35.2 cm/sec LV V1 VTI 5.6 cm Med Peak E' Reji 4.6 cm/sec MR max PG 45.3 mmHg MR max reji 336.1 cm/sec MR mean PG 22.7 mmHg MR mean reji 222 cm/sec MR VTI 61.7 cm MV A max reji 43.1 cm/sec MV dec slope 1148 cm/sec^2 MV E max reji 105 cm/sec MV max PG 6.7 mmHg MV mean PG 2.7 mmHg MV P1/2t-pr_phl 26.8 msec MV V2 max 129.3 cm/sec MV V2 mean 76.1 cm/sec MV V2 VTI 23.2 cm RV S Vel_phl 7.9 cm/sec TR max PG 42.6 mmHg TR max reji 326.5 cm/sec Other Measurements and Calculations: Ao max PG (full) 1.5 mmHg Ao mean PG (full) 0.71 mmHg Ao root area 6.9 cm^2 ROYCE(I,A) 2.2 cm^2 ROYCE(I,D) 2.2 cm^2 ROYCE(V,A) 2.2 cm^2 ROYCE(V,D) 2.2 cm^2 FS 7.2 % IVS/LVPW 0.99 LA/Ao 1.4 LVOT area 3.3 cm^2 MV E/A 2.4 MVA(VTI) 0.79 cm^2 PA pr(Accel) 45.7 mmHg SI(Ao) 30.7 ml/m^2 SI(LVOT) 9.7 ml/m^2 SV(Ao) 58.1 ml SV(LVOT) 18.3 ml LVIDd / RVDd 1.4 {ratio} InterpretingPhysician: Casi Floyd MD electronically signed on 2024-11-05 11:16:08.807 Personnel Interviewer: Millie Woodward BERKLEY Procedure Note Caleb Floyd MD - 11/05/2024 Echo Findings Aortic Valve: Aortic valve is mildly thickened. The aortic valve is not well visualized. The aortic root is normal size. No aortic stenosis. There is no aortic regurgitation. Mitral Valve: Mitral valve thickening consistent with calcification and/orfibrosis. There is no mitral stenosis. There is a central jet causing severe mitral regurgitation. Thereis systolic reversal of pulmonary veins. The ERO by PISA is 0.83 cm2.The MR is likely due to lack of leaflet coaptation. Recommend MATTHEW for further evaluation. Tricuspid Valve: The tricuspid valve is not well visualized. There is moderate tricuspid regurgitation. Right ventricular systolic pressure is elevated at 50-59mmHg. Pulmonic Valve: The pulmonic valve is not well visualized. There is no significant pulmonary regurgitation. Right Ventricle: The right ventricle is normal size. The right ventricular systolic function is mild to moderately reduced. Right Atrium: The right atrium is normal in size. Left Atrium: The left atrium is moderately enlarged. Left Ventricle: The left ventricle is normal in size. There is normal left ventricular wall thickness. The left ventricular systolic function is severely reduced. Ejection Fraction = 15 - 20% There is akinesis of the basal to distal inferior, inferoseptal,lateral wall. Remaining segments hypokinetic. There is no thrombus. Pericardium: No pericardial effusion. Diastology: E / E' = Lat= 20.5 Med= 23.0 LA Volume Index = 47.5cc/m2. E / E' ratio is elevated suggestive of increased left atrialfilling pressures. Greater Vessels: IVC measures 1.9 cm. Miscellaneous Findings: The contrast agent Definity was used to enhance this study. Tech Comments: Dr. Salter and Dr. Thompson present at bedside. Critical findings communicated. Echo Measurements MMode 2D Measurements and Calculations: Ao root diam 3 cm asc Aorta Diam 3.4 cm IVSd 1.1 cm LA dimension 4 cm LVIDd 5 cm LVIDs 4.7 cm LVLd ap2 9.5 cm LVLd ap4 9.4 cm LVLs ap2 8.5 cm LVLs ap4 8.6 cm LVOT area(traced) 3.1 cm^2 LVOT diam 2 cm LVPWd 1.1 cm RA A4Cs_phl 14.9 cm^2 RV Base_phl 4 cm RV Length_phl 7.6 cm RV Mid_phl 2.5 cm RVDd 3.7 cm RVIDd/LVIDd_phl 0.74 TAPSE_phl 0.91 cm Doppler Measurements and Calculations: MV dec time 0.09 sec PA acc time 0.07 sec Ao max PG 2.6 mmHg Ao mean PG 1.3 mmHg Ao V2 max 80.9 cm/sec Ao V2 mean 54.7 cm/sec Ao V2 VTI 8.5 cm AV VR_phl 0.67 ROYCE(VTI)/BSA_phl 1.1 Lat Peak E' Reji 5.1 cm/sec LV V1 max PG 1.2 mmHg LV V1 mean PG 0.62 mmHg LV V1 max 54 cm/sec LV V1 mean 35.2 cm/sec LV V1 VTI 5.6 cm Med Peak E' Reji 4.6 cm/sec MR max PG 45.3 mmHg MR max reji 336.1 cm/sec MR mean PG 22.7 mmHg MR mean reji 222 cm/sec MR VTI 61.7 cm MV A max reji 43.1 cm/sec MV dec slope 1148 cm/sec^2 MV E max reji 105 cm/sec MV max PG 6.7 mmHg MV mean PG 2.7 mmHg MV P1/2t-pr_phl 26.8 msec MV V2 max 129.3 cm/sec MV V2 mean 76.1 cm/sec MV V2 VTI 23.2 cm RV S Vel_phl 7.9 cm/sec TR max PG 42.6 mmHg TR max reji 326.5 cm/sec Other Measurements and Calculations: Ao max PG (full) 1.5 mmHg Ao mean PG (full) 0.71 mmHg Ao root area 6.9 cm^2 ROYCE(I,A) 2.2 cm^2 ROYCE(I,D) 2.2 cm^2 ROYCE(V,A) 2.2 cm^2 ROYCE(V,D) 2.2 cm^2 FS 7.2 % IVS/LVPW 0.99 LA/Ao 1.4 LVOT area 3.3 cm^2 MV E/A 2.4 MVA(VTI) 0.79 cm^2 PA pr(Accel) 45.7 mmHg SI(Ao) 30.7 ml/m^2 SI(LVOT) 9.7 ml/m^2 SV(Ao) 58.1 ml SV(LVOT) 18.3 ml LVIDd / RVDd 1.4 {ratio} InterpretingPhysician: Casi Floyd MD electronically signed [id number] 11:16:08.807 Personnel Interviewer: Millie Woodward RDCS IMPRESSION FINAL [id number]/05/2024 [id number] Ordering Physician: MIRSOLAVA UREÑA History: NSTEMI, Acute RF Patient Age [age] years old Order Number [id number] Patient Height 67.01 in Patient Weight 170.86 lbs Systolic Pressure 80 mmHg Diastolic Pressure 53 mmHg Heart Rate 109 bpm BSA 1.9 m^2 Procedure: Complete 2D echo with spectral/color Doppler and Definity [id number] Reason for Study: Concern for new onset heart failure with NSTEMI Interpretation Summary: The left ventricular systolic function is severely reduced. Ejection Fraction = 15 - 20%. There is akinesis of the basal todistal inferior, inferoseptal, lateral wall. Remaining segmentshypokinetic. There is apical no thrombus. The right ventricle is normal size. The right ventricular systolic function is mild to moderately reduced. The left atrium is moderately enlarged. The right atrium is normal in size. There is a central jet causing severe mitral regurgitation. Thereis systolic reversal of pulmonary veins. The ERO by PISA is 0.83 cm2.The MR is likely due to lack of leaflet coaptation. Recommend MATTHEW for further evaluation. There is moderate tricuspid regurgitation. Right ventricular systolic pressure is elevated at 50-59mmHg. No pericardial effusion. IVC measures 1.[address] Salter and Dr Thompson informed. us Mrioslava [facility] E[facility] Final Result * (ABNORMAL) PTT (11/05/2024 4:41 AM CDT) Only the most recent of2 resultswithin the time period is included. PTT 60.0(H) 22.4 - 35.9 sec [facility] Comment:[facility], [address] [place] [phone] 11/05/2024 4:41 AM CDT 11/05/2024 5:25 AM CDT Tyrel Ramirez MD HEM/CHEM/IMMUN-BLOOD Final Resul t [facility] [address] [place] [phone], * GLYCO HB A1C (11/05/2024 3:36 AM CDT) GLYCO HB A1C 5.4 4.0 - 7.0 % [facility] Comment: Recommended goal of therapy for adults with diabetes mellitus: <7.0% Adults > or =18 years: Increased risk (prediabetes): 5.7-6.4% The [place] [employer] recommends the use of A1C for the diagnosis of diabetes mellitus in non- adults with an A1C result of > or =6.5% and confirmed with repeat testing. ESTIMATED AVERAGE GLUCOSE 108 [facility] Comment: Glucose value is an estimate of the patient's average glucose over the last 60-90 days, based on the measure Hgb A1C value. [facility], [address] [place] [phone] 11/05/2024 3:36 AM CDT 11/05/2024 4:23 PM CDT Narrative [facility] - 11/05/2024 4:33 PM CDT ADD ON us Javon CANTU BS HEM/CHEM/IMMUN-BLOOD Final R esult [facility] [address] [place] [phone], [place] * CTA CHEST WITH CONTRAST PULMONARY ARTERIES (PE) (11/05/2024 2:33 AM CDT) Anatomical Region Laterality Modality Chest N/A Computed Tomogra phy 11/05/2024 2:25 AM CDT Narrative 11/05/2024 3:58 AM CDT Patient Patient Name: Ziggy Cohn ACC: [id number] PROCEDURE INFORMATION: Exam: CTA Chest With Contrast Exam date and time: 11/05/2024 2:25 AM Age: 69 years old Clinical indication: Other: Pulmonary embolism (pe) suspected, high prob TECHNIQUE: Imaging protocol: Computed tomographic angiography of the chest with contrast. Exam focused on the arteries. 3D rendering (Not supervised by radiologist): MIP and/or 3D reconstructed images were created by the technologist. Total images: 1 Radiation optimization: All CT scans at this facility use at least one of these dose optimization techniques: automated exposure control; mA and/or kV adjustment per patient size (includes targeted exams where dose is matched to clinical indication); or iterative reconstruction. Contrast material: ISOVUE 370; Contrast volume: 100 ml; Contrast route: INTRAVENOUS (IV); COMPARISON: DX XR CHEST AP OR PA ONLY 11/04/2024 8:53 PM FINDINGS: Tubes, catheters and devices: Endotracheal tube tip 3.5 cm above the dank, well positioned. Nasogastric tube well positioned in the stomach. Pulmonary arteries: Normal. No pulmonary emboli. Aorta: Calcific atherosclerotic plaque in the aortic arch. Normal caliber thoracic aorta. Lungs: Bilateral compressive atelectasis. Peribronchial ground-glass opacities may reflect superimposed infiltrates or fluid. Pleural spaces: Moderate bilateral pleural effusions. Heart: Dense coronary artery calcifications. Borderline cardiomegaly. Heart RV/LV ratio: Normal RV/LV ratio 35/55. Lymph nodes: Unremarkable. No enlarged lymph nodes. Bones/joints: Thoracic spondylosis.. No acute fracture. Soft tissues: Unremarkable. IMPRESSION: 1. No identified pulmonary embolus. 2. Moderate bilateral pleural effusions. 3. Ground-glass opacities in the perihilar regions may reflect infiltrates or fluid. This Final report was electronically signed by Evangelina Maxwell MD on 05 Nov 2024 3:58 AM CDT. Procedure Note Evangelina Maxwell DO - 11/05/2024 Patient Patient Name: Ziggy Cohn ACC: [id number] PROCEDURE INFORMATION: Exam: CTA Chest With Contrast Exam date and time: 11/05/2024 2:25 AM Age: 69 years old Clinical indication: Other: Pulmonary embolism (pe) suspected, high prob TECHNIQUE: Imaging protocol: Computed tomographic angiography of the chest withcontrast. Exam focused on the arteries. 3D rendering (Not supervised by radiologist): MIP and/or 3D reconstructed images were created by the technologist. Total images: 1 Radiation optimization: All CT scans at this facility use at least one ofthese dose optimization techniques: automated exposure control; mA and/or kV adjustment per patient size (includes targeted exams where dose is matchedto clinical indication); or iterative reconstruction. Contrast material: ISOVUE 370; Contrast volume: 100 ml; Contrast route: INTRAVENOUS (IV); COMPARISON: DX XR CHEST AP OR PA ONLY 11/04/2024 8:53 PM FINDINGS: Tubes, catheters and devices: Endotracheal tube tip 3.5 cm above thecarina, well positioned. Nasogastric tube well positioned in the stomach. Pulmonary arteries: Normal. No pulmonary emboli. Aorta: Calcific atherosclerotic plaque in the aortic arch. Normal caliber thoracic aorta. Lungs: Bilateral compressive atelectasis. Peribronchial ground-glassopacities may reflect superimposed infiltrates or fluid. Pleural spaces: Moderate bilateral pleural effusions. Heart: Dense coronary artery calcifications. Borderline cardiomegaly. Heart RV/LV ratio: Normal RV/LV ratio 35/55. Lymph nodes: Unremarkable. No enlarged lymph nodes. Bones/joints: Thoracic spondylosis.. No acute fracture. Soft tissues: Unremarkable. IMPRESSION: 1. No identified pulmonary embolus. 2. Moderate bilateral pleural effusions. 3. Ground-glass opacities in the perihilar regions may reflectinfiltrates or fluid. This Final report was electronically signed by Evangelina Maxwell MD on 05 Nov 2024 3:58 AM CDT. us Miroslava MUSTAFA CT WITH CONTRAST Final Result * BLOOD CULTURE, ROUTINE (11/04/2024 11:28 PM CDT) Only the most recent of2 resultswithin the time period is included. [facility] BLOOD CULTURE, ROUTINE No growth at 5 days. [facility] Blood PERIPHERAL BLOOD SPECIMEN / Unknown 11/04/2024 11:28 PM CDT 11/04/2024 11:49 PM CDT Narrative [facility] - 11/10/2024 3:00 AM CDT [facility] [address] [place] [id number] Source: Blood -Peripheral Draw Site: us Miroslava MUSTAFA MICROBIOLOGY Final Result [facility] [address] [place] [phone], * MRSA SCREENING BY PCR (11/04/2024 10:31 PM CDT) Pathologist [facility] MRSA SCREENING BY PCR NOT DETECTED NOT DETECTED [facility] Comment: Test performed by automated Real Time PCR to detect MRSA DNA on the GeneXpert DX system. [facility], [address] [place] [phone] BOTH ANTERIOR NARES / Unknown 11/04/2024 10:31 PM CDT 11/04/2024 10:37 PM CDT Narrative [facility] - 11/05/2024 12:35 AM CDT Ensure MRSA nares screen is completed before first doses of Mupirocin and Chlorhexidine are administered via universal decolonization regimen. Miroslava MUSTAFA HEM/CHEM/TSFBN-IYS-HHT OD Final Result Performing Organization Address [facility] Co de Phone Number [facility] [address] [place] [phone], [place] * (ABNORMAL) PROTIME (INR) (11/04/2024 10:07 PM CDT) PROTHROMBIN TIME 15.9(H) 12.1 - 14.9 sec [facility] INR 1.3(H) 0.9 - 1.1 ratio [facility] Comment:[facility], [address] [place] [phone] 11/04/2024 10:0 7 PM CDT 11/04/2024 10:31 PM CDT Narrative [facility] - 11/04/2024 10:49 PM CDT baseline prior to heparin therapy Baseline prior to heparin therapy Miroslava MUSTAFA HEM/CHEM/IMMUN-BLOOD F inal Result Performing Organization Address [facility] Co de Phone Number [facility] [address] [place] [address], [place] * (ABNORMAL) TROPONIN, HIGH SENSITIVITY (11/04/2024 9:12 PM CDT) TROPONIN, HIGH SENSITIVITY 21,836(HH ) 0 - 4 ng/L [facility] Comment: Refer to the High Sensitivity Troponin Algorithm for interpretation and risk stratification guidelines. [facility], [address] [place] [address] 11/04/2024 9:12 PM CDT 11/04/2024 9:28 PM CDT Miroslava MUSTAFA HEM/CHEM/IMMUN-BLOOD F inal Result Performing Organization Address [facility]/ZIP Co de Phone Number [facility] [address] [place] [address], [place] * (ABNORMAL) B-NATRIURETIC PEPTIDE (11/04/2024 9:12 PM CDT) Pathologist [facility] B-NATRIURETIC PEPTIDE 1,099.0(H) 0.0 - 100.0 pg/mL [facility] Comment:[facility], [address] [place] [address] 11/04/2024 9:12 PM CDT 11/04/2024 9:26 PM CDT [facility] Antonio MUSTAFA HEM/CHEM/IMMUN-BLOOD F inal Result Performing Organization Address [facility] Co de Phone Number [facility] [address] [place] [address], [place] * TRIGLYCERIDES (11/04/2024 9:12 PM CDT) [facility] TRIGLYCERIDES 113 <150 mg/dL [facility] Comment: Normal < 150 Borderline High 150 to 199 High 200 to 499 Very High >= 500 The National Cholesterol Education Program (NCEP) Adult Treatment Panel III Report recommends the classification shown above. Laboratories should follow recommendations for lipid ranges effective in their locale if they differ from those of the NCEP. [facility], [address] [place] [address] 11/04/2024 9:12 PM CDT 11/04/2024 9:28 PM CDT Miroslava MUSTAFA HEM/CHEM/IMMUN-BLOOD F inal Result Performing Organization Address [facility]/ZIP Co de Phone Number [facility] [address] [place] [address], [place] * XR CHEST OUTSIDE STUDY (11/04/2024 4:50 PM CDT) Only the most recent of2 resultswithin the time period is included. 11/04/2024 3:54 PM CDT us Ajith Noe MD X-RAY (OUTSIDE STUDY) Final Result from Last 3 Months Insurance [facility] Advance Directives For more information, please contact: [phone] * Attempt CPR / Full Treatment (Latest Code Status on File) Date Activated Date Inactivated Comments 11/05/2024 3:37 PM 11/07/2024 6:01 AM * Attempt CPR / Full Treatment Date Activated Date Inactivated Comments 11/04/2024 8:34 PM 11/05/2024 3:37 PM Care Teams Cancellation Clerk Relationship Specialty Start Date End Date Diaz Saucedo MD [address] [place] [address] PCP - General Family Medicine 11/04/24
--- OUTSIDE RECORDS SUMMARY | 2024-12-14 10:02 | XMS_ITS | Encounter Summary ---
Author Organization [facility] Address [address] [place] [address] Phone Care Team Providers Care Tool Room Lathe Operator Name Role Phone Diaz Saucedo MD Primary Care Provider [phone] Geovanni Aviles MD Unavailable Siddharth Maurer MD Unavailable [phone] Elis Hidalgo RN Unavailable Unavailab le Reason for Visit * Reason Comments Medication Refill Encounter Details Date Type Department Care Team (Late st Contact Info) Description 01/23/2021 Refill [facility] [address] [place] [address] [place] [address] Siddharth Maurer MD [address] [place] [address] [place] [address] Medication Refill Social History Tobacco Use Types Packs/Day Years Used Date Smoking Tobacco: Never Smokeless Tobacco: Never Alcohol Use Standard Drinks/Week Comments No 0 (1 standard drink = 0.6 oz pur e alcohol) former PHQ-2 Answer Date Recorded Total Score - Questions 1-9 0 03/2020 Sex and Gender Information Value Date Recorded Sex Assigned at Male 11/13/2023 11:06 AM CDT Legal Sex Male 7:06 PM CDT Gender Identity Male 11/13/2023 11:06 AM CDT Sexual Orientation Not on file COVID-19 Exposure Response Date Recorded In the last month, have you been in contact with someone who was confirmed or suspected to have Coronavirus / COVID-19? No / Unsure 01/12/2021 9:13 AM INSURANCE EXAMINING CLERK documented as of this encounter Plan of Treatment Upcoming Encounters Date Type Department Care Team (Late st Contact Info) Description 04/02/2025 8:30 AM INSURANCE EXAMINING CLERK Office Visit [address] [place] [address] Siddharth Maurer MD [address] [place] [address] [place] [id number] [phone] documented as of this encounter Visit Diagnoses Not on filedocumented in this encounter Additional Health Concerns Assessment Noted Time PHQ-9 Depression Total Score: 0 12/16/19 9:34 AM CDT documented as of this encounter Care Teams Tool Room Lathe Operator Relationship Specialty Start Date End Date Diaz Saucedo MD PCP - General Family Medicine 09/19/15 Geovanni Aviles MD [address] [place] [address] [place] [phone] Consulting Physician Oncology 09/19/15 Siddharth Maurer MD [address] [place] [address] [address] [place] [phone] Consulting Physician Radiation Oncology 03/20/17 Elis Hidalgo RN [place] Oncology Nurse Navigator Oncology 07/15/19 03/26/24 documented as of this encounter
--- OUTSIDE RECORDS SUMMARY | 2024-12-14 10:02 | XMS_ITS | Encounter Summary ---
Author Organization [facility] Address [address] [place] [address] Phone Care Team Providers Care Applique Sewer Name Role Phone Diaz Saucedo MD Primary Care Provider [phone] Geovanni Aviles MD Unavailable Siddharth Maurer MD Unavailable [phone] Elis Hidalgo RN Unavailable Unavailab le Reason for Visit * Reason Onset Date Comments Medication Refill Medication Refill 03/29/2020 Encounter Details Date Type Department Care Team (Late st Contact Info) Description 03/01/2020 Refill [facility] [address] [place] [address] [place] [address] Siddharth Maurer MD [address] [place] [address] [place] [address] Medication Refill; Medication Refill Social History Tobacco Use Types Packs/Day Years Used Date Smoking Tobacco: Never Smokeless Tobacco: Never Alcohol Use Standard Drinks/Week Comments No 0 (1 standard drink = 0.6 oz pur e alcohol) former PHQ-2 Answer Date Recorded PHQ-2 Score 0 12/04/2018 Sex and Gender Information Value Date Recorded Sex Assigned at Male 11/13/2023 11:06 AM CDT Legal Sex Male 7:06 PM CDT Gender Identity Male 11/13/2023 11:06 AM CDT Sexual Orientation Not on file COVID-19 Exposure Response Date Recorded In the last month, have you been in contact with someone who was confirmed or suspected to have Coronavirus / COVID-19? No / Unsure 02/25/2020 8:32 AM SURVEILLANCE SPECIALIST documented as of this encounter Plan of Treatment Upcoming Encounters Date Type Department Care Team (Late st Contact Info) Description 04/02/2025 8:30 AM SURVEILLANCE SPECIALIST Office Visit [address] [place] [address] Siddharth Maurer MD [address] [place] [address] [place] [id number] [phone] documented as of this encounter Visit Diagnoses Not on filedocumented in this encounter Additional Health Concerns Assessment Noted Time PHQ-9 Depression Total Score: 0 02/24/19 8:47 AM SURVEILLANCE SPECIALIST documented as of this encounter Care Teams Applique Sewer Relationship Specialty Start Date End Date Diaz Saucedo MD PCP - General Family Medicine 09/19/15 Geovanni Aviles MD [address] [place] [address] [place] 108973 [phone] Consulting Physician Oncology 09/19/15 Siddharth Maurer MD [address] [place] [address] [place] [address] Consulting Physician Radiation Oncology 03/20/17 Elis Hidalgo RN [place] Oncology Nurse Navigator Oncology 07/15/19 03/26/24 documented as of this encounter
--- OUTSIDE RECORDS SUMMARY | 2024-12-14 10:02 | XMS_ITS | Encounter Summary ---
Author Organization [facility] Address [address] [place] [address] Phone Care Team Providers Care Creative Resource Manager Name Role Phone Diaz Saucedo MD Primary Care Provider [phone] Geovanni Aviles MD Unavailable Siddharth Maurer MD Unavailable [phone] Elis Hidalgo RN Unavailable Unavailab le Reason for Visit * Reason Comments Medication Refill Encounter Details Date Type Department Care Team (Late st Contact Info) Description 05/30/2021 Refill [facility] [address] [place] [address] [place] [address] Siddharth Maurer MD [address] [place] [address] [place] [address] Medication Refill Social History Tobacco Use Types Packs/Day Years Used Date Smoking Tobacco: Never Smokeless Tobacco: Never Alcohol Use Standard Drinks/Week Comments No 0 (1 standard drink = 0.6 oz pur e alcohol) former PHQ-2 Answer Date Recorded Total Score - Questions 1-9 0 04/12 Sex and Gender Information Value Date Recorded Sex Assigned at Male 11/13/2023 11:06 AM CDT Legal Sex Male 7:06 PM CDT Gender Identity Male 11/13/2023 11:06 AM CDT Sexual Orientation Not on file COVID-19 Exposure Response Date Recorded In the last 10 days, have yo u been in contact with someone who was confirmed or suspected to have Coronavirus/COVID-19? No / Unsure 05/04/2021 9:28 AM CDT documented as of this encounter Plan of Treatment Upcoming Encounters Date Type Department Care Team (Late st Contact Info) Description 04/02/2025 8:30 AM PUBLIC HEALTH ASSISTANT Office Visit [address] [place] [address] Siddharth Maurer MD [address] [place] [address] [place] [id number] [phone] documented as of this encounter Visit Diagnoses Not on filedocumented in this encounter Additional Health Concerns Assessment Noted Time PHQ-9 Depression Total Score: 0 12/16/19 9:34 AM CDT documented as of this encounter Care Teams Creative Resource Manager Relationship Specialty Start Date End Date Diaz Saucedo MD PCP - General Family Medicine 09/19/15 Geovanni Aviles MD [address] [place] [address] [place] [id number] [phone] Consulting Physician Oncology 09/19/15 Siddharth Maurer MD [address] [place] [address] [address] [place] [phone] Consulting Physician Radiation Oncology 03/20/17 Elis Hidalgo RN [place] Oncology Nurse Navigator Oncology 07/15/19 03/26/24 documented as of this encounter
--- OUTSIDE RECORDS SUMMARY | 2024-12-14 10:02 | XMS_ITS | Encounter Summary ---
Author Organization [facility] Address [address] [place] [address] Phone Care Team Providers Care Focused Factory Manager Name Role Phone Diaz Saucedo MD Primary Care Provider [phone] Geovanni Aviles MD Unavailable Siddharth Maurer MD Unavailable [phone] Elis Hidalgo RN Unavailable Unavailab le Reason for Visit * Reason Comments Medication Refill Encounter Details Date Type Department Care Team (Late st Contact Info) Description 08/18/2022 Refill [facility] [address] [place] [address] [place] [address] Siddharth Maurer MD [address] [place] [address] [place] [address] Medication Refill Social History Tobacco [...] suspected to have Coronavirus/COVID-19? No / Unsure 07/26/2022 8:23 AM CDT documented as of this encounter Plan of Treatment Upcoming Encounters Date Type Department Care Team (Late st Contact Info) Description 04/02/2025 8:30 AM MGMT SPECIALIST Office Visit [address] [place] [address] Siddharth Maurer MD [address] [place] [address] [place] 782550 [phone] documented as of this encounter Visit Diagnoses Diagnosis Prostate cancer Malignant neoplasm of prostate Other male erectile dysfunction documented in this encounter Additional Health Concerns Assessment Noted Time PHQ-9 Depression Total Score: 0 12/16/19 21 9:34 AM CDT documented as of this encounter Care Teams Focused Factory Manager Relationship Specialty Start Date End Date Diaz Saucedo MD PCP - General Family Medicine 09/19/15 Geovanni Aviles MD [address] [place] [address] [address] [place] [id number] [phone] Consulting Physician Oncology 09/19/15 Siddharth Maurer MD [address] [place] [address] [place] [address] Consulting Physician Radiation Oncology 03/20/17 Elis Hidalgo RN [place] Oncology Nurse Navigator Oncology 07/15/19 03/26/24 documented as of this encounter
--- OUTSIDE RECORDS SUMMARY | 2024-12-14 10:02 | XMS_ITS | Encounter Summary ---
Author Organization [facility] Address [address] [place] [address] Phone Care Team Providers Care Salicylic Acid Blender Name Role Phone Diaz Saucedo MD Primary Care Provider [phone] Geovanni Aviles MD Unavailable Siddharth Maurer MD Unavailable [phone] Elis Hidalgo RN Unavailable Unavailab le Reason for Visit * Reason Comments Medication Refill Encounter Details Date Type Department Care Team (Late Contact Info) Description 02/22/[address] [place] [address] Siddharth Maurer MD [address] [place] [address] Medication Refill Social History Tobacco Use [...] st Contact Info) Description 04/02/2025 8:30 AM HAND FORMER Office Visit [address] [place] [phone] Siddharth Maurer MD [address] [place] [address] [address] [place] [id number] documented as of this encounter Visit Diagnoses Diagnosis Prostate cancer Malignant neoplasm of prostate Other male erectile dysfunction documented in this encounter Additional Health Concerns Assessment Noted Time PHQ-9 Depression Total Score: 0 12/16/19 21 9:34 AM CDT documented as of this encounter Care Teams Salicylic Acid Blender Relationship Specialty Start Date End Date Diaz Saucedo MD PCP - General Family Medicine 09/19/15 Geovanni Aviles MD [address] [place] [address] [address] [place] [id number] [phone] Consulting Physician Oncology 09/19/15 Siddharth Maurer MD [address] [place] [address] [address] [place] [phone] Consulting Physician Radiation Oncology 03/20/17 Elis Hidalgo, RN [place] Oncology Nurse Navigator Oncology 07/15/19 03/26/24 documented as of this encounter
--- OUTSIDE RECORDS SUMMARY | 2024-12-14 10:02 | XMS_ITS | Encounter Summary ---
Author Organization [facility] Address [address] [place] [address] Phone Care Team Providers Care Investment Banking Analyst Name Role Phone Diaz Saucedo MD Primary Care Provider [phone] Geovanni Aviles MD Unavailable Siddharth Maurer MD Unavailable [phone] Elis Hidalgo RN Unavailable Unavailab le Reason for Visit * Reason Comments Medication Refill Encounter Details Date Type Department Care Team (Late st Contact Info) Description 12/09/2021 Refill [facility] [address] [place] [address] [place] [address] Siddharth Maurer MD [address] [place] [address] [place] [address] Medication Refill Social History Tobacco [...] suspected to have Coronavirus/COVID-19? No / Unsure 11/23/2021 9:21 AM CDT documented as of this encounter Plan of Treatment Upcoming Encounters Date Type Department Care Team (Late st Contact Info) Description 04/02/2025 8:30 AM DUST OPERATOR Office Visit [address] [place] [address] Siddharth Maurer MD [address] [place] [address] [place] [address] documented as of this encounter Visit Diagnoses Diagnosis Prostate cancer Malignant neoplasm of prostate Other male erectile dysfunction documented in this encounter Additional Health Concerns Assessment Noted Time PHQ-9 Depression Total Score: 0 12/16/19 9:34 AM CDT documented as of this encounter Care Teams Investment Banking Analyst Relationship Specialty Start Date End Date Diaz Saucedo MD PCP - General Family Medicine 09/19/15 Geovanni Aviles MD [address] [place] [address] [place] 824278 [phone] Consulting Physician Oncology 09/19/15 Siddharth Maurer MD [address] [place] [address] [place] [address] Consulting Physician Radiation Oncology 03/20/17 Elis Hidalgo RN [place] Oncology Nurse Navigator Oncology 07/15/19 03/26/24 documented as of this encounter
--- OUTSIDE RECORDS SUMMARY | 2024-12-14 10:02 | XMS_ITS | Encounter Summary ---
Author Organization [facility] Address [address] [place] [address] Phone Care Team Providers Care Stores Clerk Name Role Phone Diaz Saucedo MD Primary Care Provider [phone] Geovanni Aviles MD Unavailable Siddharth Maurer MD Unavailable [phone] Elis Hidalgo RN Unavailable Unavailab le Reason for Visit * Reason Comments Medication Refill Encounter Details Date Type Department Care Team (Late st Contact Info) Description 03/28/2021 Refill [facility] [address] [place] [address] [place] [address] Siddharth Maurer MD [address] [place] [address] [place] [address] Medication Refill Social History Tobacco Use Types Packs/Day Years Used Date Smoking Tobacco: Never Smokeless Tobacco: Never Alcohol Use Standard Drinks/Week Comments No 0 (1 standard drink = 0.6 oz pur e alcohol) former PHQ-2 Answer Date Recorded Total Score - Questions 1-9 0 03/14 Sex and Gender Information Value Date Recorded Sex Assigned at Male 11/13/2023 11:06 AM CDT Legal Sex Male 7:06 PM CDT Gender Identity Male 11/13/2023 11:06 AM CDT Sexual Orientation Not on file COVID-19 Exposure Response Date Recorded In the last month, have you been in contact with someone who was confirmed or suspected to have Coronavirus / COVID-19? No / Unsure 03/29/2021 10:31 AM ACCREDITATION MANAGER documented as of this encounter Plan of Treatment Upcoming Encounters Date Type Department Care Team (Late st Contact Info) Description 04/02/2025 8:30 AM ACCREDITATION MANAGER Office Visit [address] [place] [address] Siddharth Maurer MD [address] [place] [address] [place] [id number] [phone] documented as of this encounter Visit Diagnoses Not on filedocumented in this encounter Additional Health Concerns Assessment Noted Time PHQ-9 Depression Total Score: 0 12/16/19 21 9:34 AM CDT documented as of this encounter Care Teams Stores Clerk Relationship Specialty Start Date End Date Diaz Saucedo MD PCP - General Family Medicine 09/19/15 Geovanni Aviles MD [address] [place] [address] [address] [place] 111861 Consulting Physician Oncology 09/19/15 Siddharth Maurer MD [address] [place] [address] [address] [place] [phone] Consulting Physician Radiation Oncology 03/20/17 Elis Hidalgo RN [place] Oncology Nurse Navigator Oncology 07/15/19 03/26/24 documented as of this encounter
--- OUTSIDE RECORDS SUMMARY | 2024-12-14 10:02 | XMS_ITS | Encounter Summary ---
Author Organization [facility] Address [address] [place] [address] Phone Care Team Providers Care Clinical Documentation Spec Name Role Phone Diaz Saucedo MD Primary Care Provider [phone] Geovanni Aviles MD Unavailable Siddharth Maurer MD Unavailable [phone] Elis Hidalgo RN Unavailable Unavailab le Reason for Visit * Reason Comments Medication Refill Encounter Details Date Type Department Care Team (Late st Contact Info) Description 01/01/2022 Refill [facility] [address] [place] [address] [place] [address] Siddharth Maurer MD [address] [place] [address] [place] [address] Medication Refill Social History Tobacco [...] suspected to have Coronavirus/COVID-19? No / Unsure 12/21/2021 9:25 AM NET WEB DEVELOPER documented as of this encounter Plan of Treatment Upcoming Encounters Date Type Department Care Team (Late st Contact Info) Description 04/02/2025 8:30 AM NET WEB DEVELOPER Office Visit [address] [place] [address] Siddharth Maurer MD [address] [place] [address] [place] 063393 [phone] documented as of this encounter Visit Diagnoses Diagnosis Prostate cancer Malignant neoplasm of prostate Other male erectile dysfunction documented in this encounter Additional Health Concerns Assessment Noted Time PHQ-9 Depression Total Score: 0 12/16/19 9:34 AM CDT documented as of this encounter Care Teams Clinical Documentation Spec Relationship Specialty Start Date End Date Diaz Saucedo MD PCP - General Family Medicine 09/19/15 Geovanni Aviles MD [address] [place] [address] [address] [place] 139888 [phone] Consulting Physician Oncology 09/19/15 Siddharth Maurer MD [address] [place] [address] [place] [address] Consulting Physician Radiation Oncology 03/20/17 Elis Hidalgo RN [place] Oncology Nurse Navigator Oncology 07/15/19 03/26/24 documented as of this encounter
--- OUTSIDE RECORDS SUMMARY | 2024-12-14 10:02 | XMS_ITS | Encounter Summary ---
Author Organization [facility] Address [address] [place] [address] Phone Care Team Providers Care Vendor Quality Supervisor Name Role Phone Diaz Saucedo MD Primary Care Provider [phone] Geovanni Aviles MD Unavailable Siddharth Maurer MD Unavailable [phone] Elis Hidalgo RN Unavailable Unavailab le Reason for Visit * Reason Comments Medication Refill Encounter Details Date Type Department Care Team (Late st Contact Info) Description 07/22/2022 Refill [facility] [address] [place] [address] [place] [address] Siddharth Maurer MD [address] [place] [address] [place] [address] Medication Refill Social History Tobacco [...] suspected to have Coronavirus/COVID-19? No / Unsure 06/28/2022 8:12 AM CDT documented as of this encounter Plan of Treatment Upcoming Encounters Date Type Department Care Team (Late st Contact Info) Description 04/02/2025 8:30 AM LIME PLANT OPERATOR Office Visit [address] [place] [address] Siddharth Maurer MD [address] [place] [address] [place] [id number] [phone] documented as of this encounter Visit Diagnoses Diagnosis Prostate cancer Malignant neoplasm of prostate Other male erectile dysfunction documented in this encounter Additional Health Concerns Assessment Noted Time PHQ-9 Depression Total Score: 0 12/16/19 21 9:34 AM CDT documented as of this encounter Care Teams Vendor Quality Supervisor Relationship Specialty Start Date End Date Diaz Saucedo MD PCP - General Family Medicine 09/19/15 Geovanni Aviles MD [address] [place] [address] [place] 118522 [phone] Consulting Physician Oncology 09/19/15 Siddharth Maurer MD [address] [place] [address] [place] [address] Consulting Physician Radiation Oncology 03/20/17 Elis Hidalgo RN [place] Oncology Nurse Navigator Oncology 07/15/19 03/26/24 documented as of this encounter
--- OUTSIDE RECORDS SUMMARY | 2024-12-14 10:03 | XMS_ITS | Encounter Summary ---
Author Organization [facility] Address [address] [place] [address] Phone Care Team Providers Care Airplane Gas Tank Liner Assembler Name Role Phone Diaz Saucedo MD Primary Care Provider [phone] Geovanni Aviles MD Unavailable Siddharth Maurer MD Unavailable [phone] Elis Hidalgo RN Unavailable Unavailab le Reason for Visit * Reason Comments Medication Refill Encounter Details Date Type Department Care Team (Late st Contact Info) Description 10/27/2020 Refill [facility] [address] [place] [address] Geovanni Aviles MD [address] [place] [address] [place] [address] Medication Refill Social History Tobacco Use Types Packs/Day Years Used Date Smoking Tobacco: Never Smokeless Tobacco: Never Alcohol Use Standard Drinks/Week Comments No 0 (1 standard drink = 0.6 oz pur e alcohol) former PHQ-2 Answer Date Recorded Total Score - Questions 1-9 1 10/2020 Sex and Gender Information Value Date Recorded Sex Assigned at Male 11/13/2023 11:06 AM CDT Legal Sex Male 7:06 PM CDT Gender Identity Male 11/13/2023 11:06 AM CDT Sexual Orientation Not on file COVID-19 Exposure Response Date Recorded In the last month, have you been in contact with someone who was confirmed or suspected to have Coronavirus / COVID-19? No / Unsure 10/20/2020 9:20 AM CDT documented as of this encounter Plan of Treatment Upcoming Encounters Date Type Department Care Team (Late st Contact Info) Description 04/02/2025 8:30 AM PROPERTY CLERK Office Visit [address] [place] [address] Siddharth Maurer MD [address] [place] [address] [place] [id number] [phone] documented as of this encounter Visit Diagnoses Not on filedocumented in this encounter Additional Health Concerns Assessment Noted Time PHQ-9 Depression Total Score: 1 10/21/19 21 9:26 AM CDT documented as of this encounter Care Teams Airplane Gas Tank Liner Assembler Relationship Specialty Start Date End Date Diaz Saucedo MD PCP - General Family Medicine 09/19/15 Geovanni Aviles MD [address] [place] [address] [place] [id number] Consulting Physician Oncology 09/19/15 Siddharth Maurer MD [address] [place] [address] [place] [id number] Consulting Physician Radiation Oncology 03/20/17 Elis Hidalgo RN [place] Oncology Nurse Navigator Oncology 07/15/19 03/26/24 documented as of this encounter
--- OUTSIDE RECORDS SUMMARY | 2024-12-14 10:03 | XMS_ITS | Encounter Summary ---
Author Organization [facility] Address [address] [place] [address] Phone Care Team Providers Care Offbearer Name Role Phone Diaz Saucedo MD Primary Care Provider [phone] Geovanni Aviles MD Unavailable Siddharth Maurer MD Unavailable [phone] Elis Hidalgo RN Unavailable Unavailab le Reason for Visit * Reason Onset Date Comments Medication Refill Medication Refill 09/15/2020 Medication Refill 10/18/2020 Encounter Details Date Type Department Care Team (Late st Contact Info) Description 08/29/2020 Refill [facility] [address] [place] [address] [place] [address] Siddharth Maurer MD [address] [place] [address] [place] [address] Medication Refill; Medication Refill; Medication Refill Social History Tobacco Use Types Packs/Day Years Used Date Smoking Tobacco: Never Smokeless Tobacco: Never Alcohol Use Standard Drinks/Week Comments No 0 (1 standard drink = 0.6 oz pur e alcohol) former PHQ-2 Answer Date Recorded Total Score - Questions 1-9 0 07/0 02/2020 Sex and Gender Information Value Date Recorded Sex Assigned at Male 11/13/2023 11:06 AM CDT Legal Sex Male 7:06 PM CDT Gender Identity Male 11/13/2023 11:06 AM CDT Sexual Orientation Not on file COVID-19 Exposure Response Date Recorded In the last month, have you been in contact with someone who was confirmed or suspected to have Coronavirus / COVID-19? No / Unsure 08/25/2020 9:49 AM CDT documented as of this encounter Plan of Treatment Upcoming Encounters Date Type Department Care Team (Late st Contact Info) Description 04/02/2025 8:30 AM DOCK SUPERINTENDENT Office Visit [address] [place] [address] Siddharth Maurer MD [address] [place] [address] [place] [address] documented as of this encounter Visit Diagnoses Not on filedocumented in this encounter Additional Health Concerns Assessment Noted Time PHQ-9 Depression Total Score: 0 08/12/19 21 11:32 AM CDT documented as of this encounter Care Teams Offbearer Relationship Specialty Start Date End Date Diaz Saucedo MD PCP - General Family Medicine 09/19/15 Geovanni Aviles MD [address] [place] [address] [place] [phone] Consulting Physician Oncology 09/19/15 Siddharth Maurer MD [address] [place] [address] [place] [address] Consulting Physician Radiation Oncology 03/20/17 Elis Hidalgo, ZAN [place] Oncology Nurse Navigator Oncology 07/15/19 03/26/24 documented as of this encounter
--- OUTSIDE RECORDS SUMMARY | 2024-12-14 10:03 | XMS_ITS | Clinical Summary ---
Author Organization [facility] Address [address] [place] [address] Phone Care Team Providers Care Rug Sizer Name Role Phone Diaz Saucedo MD Primary Care Provider [phone] Geovanni Aviles MD Unavailable Siddharth Maurer MD Unavailable [phone] Allergies Active Allergy Reactions Criticality Noted Date Comments Dust Mite Extract Runny Nose Low 06/02/2015 Egg Protein-Containing Drug Products Unknown High 09/19/2015 Molds & Smuts Runny Nose Low 06/02/2015 Medications fluticasone (FLONASE) 50 MCG/ACT Suspension 2 Sprays by Nasal route 2 times daily. 05/30/2015 Active Omeprazole-Sodiu m Bicarbonate (ZEGERID PO) Take by mouth. Active NIFEdipine (PROCARDIA-XL) 90 MG TABLET SR 24 HR 01/09/2016 Active VENTOLIN HFA 108 (90 BASE) MCG/ACT Aerosol Solution 03/14/2016 Active diclofenac (VOLTAREN) 75 MG Tablet Delayed Response Take 75 mg by mouth 2 times daily. Active potassium chloride CR (KLORCON) 10 MEQ Tablet Controlled Release TAKE 1 TABLET BY MOUTH ONCE DAILY 07/06/2020 Active acyclovir (ZOVIRAX) 400 MG Tablet Take 1 tablet by mouth twice daily 180 Tablet 10/26/2020 Active allopurinol (ZYLOPRIM) 100 MG Tablet Take 2 tablets by mouth once daily 180 Tablet 10/27/2020 Active cyclobenzaprine (FLEXERIL) 10 MG Tablet Take 1 tablet (10 mg total) by mouth 3 (three) times daily as needed for Muscle Spasms. 05/24/2022 Active montelukast (SINGULAIR) 10 MG Tablet Take 1 Tablet by mouth daily. 02/13/2023 Active sildenafil citrate (VIAGRA) 50 MG Tablet Take 2 tablets one hour prior to intercourse. 30 Tablet 2 04/29/2023 Active Breztri Aerosphere 160-9-4.8 MCG/ACT Aerosol take 2 Puffs by inhalation. 10/29/2023 Active losartan (COZAAR) 25 MG Tablet Take 25 mg by mouth daily. 11/28/2023 Active Active Problems Problem Noted Date Diagnosed Date HTN (hypertension) 04/30/2024 Acute renal failure syndrome 03/24/2024 Dehydration 03/24/2024 Elevated blood pressure reading 01/08/2024 Other male erectile dysfunction 10/31/2022 Mass of colon 12/15/2020 Osteoarthritis of knee 09/21/2020 Acquired hypogammaglobulinemia 08/12/2020 Hypokalemia 02/25/2020 Chemotherapy-induced thrombocytopenia 11/05/2019 Night sweats 10/22/2019 Malignant melanoma of skin 07/28/2019 Overview (07/28/2019): Per medical history and chart documentation. Chronic allergic rhinitis 06/19/2019 Hyperbilirubinemia 04/23/2019 Transaminitis 04/23/2019 Chronic obstructive pulmonary disease 01/07/2019 Thrombocytopenia 11/06/2018 Neoplastic malignant related fatigue 10/02/2018 Lymphocytosis 04/10/2018 Leukemoid reaction 03/12/2017 CLL (chronic lymphocytic leukemia) 03/09/2016 Prostate cancer 10/27/2015 Leukocytosis 06/02/2015 Polycythemia 06/02/2015 Cervical adenopathy 06/02/2015 Hepatomegalia 06/02/2015 Splenomegaly 06/02/2015 Hepatomegaly 06/02/2015 Encounters Date Type Department Care Team Description 10/29/2024 8:45 AM CDT Clinical Support [facility] [address] [place] [address] Acquired hypogammaglobulinemia (HCC) (Primary Dx); Hypogammaglobulinemia, acquired (HCC) 10/29/2024 8:30 AM CDT Office Visit [address] [address] Vicky Rollins APN, EVELYN Acquired hypogammaglobulinemia (HCC) (Primary Dx); CLL (chronic lymphocytic leukemia) (HCC); Malignant melanoma of skin; Splenomegaly; Thrombocytopenia (HCC); Renal insufficiency; Chronic obstructive pulmonary disease, unspecified COPD type (HCC); Prostate cancer (HCC); Hepatomegaly 10/29/2024 Travel 10/01/2024 9:30 AM CDT Clinical Support [address] [address] Acquired hypogammaglobulinemia (HCC) (Primary Dx); Hypogammaglobulinemia, acquired (HCC) 10/01/2024 9:15 AM CDT Office Visit [address] [address] Geovanni Aviles MD CLL (chronic lymphocytic leukemia) (HCC) (Primary Dx); Hypogammaglobulinemia, acquired (HCC); Malignant melanoma of skin; Splenomegaly; Thrombocytopenia (HCC); Renal insufficiency; Chronic obstructive pulmonary disease, unspecified COPD type (HCC); Prostate cancer (HCC); Hepatomegaly; Polycythemia 10/01/2024 Travel from Last 3 Months Immunizations Immunization Administration Dates Next Due IMM GLOB HUMAN IV 10/29/2024, 5,01/08/2024,12/12/2023,11/14/2023,,08/01/2023,07/04/2023,05/02/2023,03/28/2023,2023,12/20/2022,11/22/2022,10/25/2022,08/23/2022, 3,06/28/2022,04/26/2022,03/29/2022,03/01/2022,12/21/2021() ,12/21/2021,11/23/2021(),11/23/2021,10/19/2021(),,08/24/2021(),08/24/2021,07/27/2021(),07/27/2021,06/30/19 22(),06/29/2021,05/04/2021(),05/04/2021,04/06/2021(),04/06,03/09/2021(),03/09/2021,02/09/2021(),02/09/2021,03/2020(),01/12/2021,12/15/2020(),12/15/2020,10/20/2020(),0 10/20/2020,09/22/2020(),09/22/2020,08/25/2020(),08/25/2020 Family History Medical History Relation Name Comments No Known Problems Father Auto Accid ent Chronic Obstructive Pulmonary Disease Mother Hypertension Mother Other-comment Mother Charcot-Lorelei- Tooth Disease Relation Name Status Comments Father Mother Social History Tobacco Use Types Packs/Day Years Used Date Smoking Tobacco: Never Passive Smoke Exposure: Never Smokeless Tobacco: Never Tobacco Cessation:Counseling Given: Not Answered Alcohol Use Standard Drinks/Week Comments No 0 (1 standard drink = 0.6 oz pur e alcohol) former PHQ-2 Answer Date Recorded Total Score - Questions 1-9 0 09/2021 Sex and Gender Information Value Date Recorded Sex Assigned at Male 11/13/2023 11:06 AM CDT Legal Sex Male 7:06 PM CDT Gender Identity Male 11/13/2023 11:06 AM CDT Sexual Orientation Not on file Last Filed Vital Signs Vital Sign Reading Time Taken Comments Blood Pressure 134/84 10/29/2024 8:35 AM CDT Pulse 101 10/29/2024 8:35 AM CDT Temperature 36.7 C (98 F) 10/29/2024 8:35 AM CDT Respiratory Rate 18 10/29/2024 8:35 AM CDT Oxygen Saturation 96% 10/29/2024 8:35 AM CDT Inhaled Oxygen Concentration - - Weight 77.6 kg (171 lb 1.6 oz) 10/29/2024 8:35 A M CDT Height 170.2 cm (5' 7) 10/29/2024 8:35 AM CDT Body Mass Index 26.8 10/29/2024 8:35 AM CDT Plan of Treatment Upcoming Encounters Date Type Department Care Team (Late st Contact Info) Description 04/02/2025 8:30 AM CATERING SALES MANAGER Office Visit [address] [place] [address] Siddharth Maurer MD [address] [place] [address] [place], [place] [id number] Health Maintenance Due Date Last Done Comments TdaP Immunization 1953 SARS-COV-2 Immunization (#1) 1958 Pneumococcal Immunization (50+ years) (1 of 2 - PCV) 1972 Zoster Immunization (1 of 2) 1972 Cologuard 1998 Colonoscopy 1998 Colorectal Cancer Screening 1998 Immunochemical Fecal Occult Blood 1998 Respiratory Syncytial Virus (RSV) Immunization (Adult) (1 - Risk 50-74 years 1-dose series) 10/05/2003 Medicare Initial AWV [id number] 04/11/2014 Influenza Immunization (#1) 2024 Hepatitis C Virus (HCV) Screening Completed 05/27/2019 PSA Discussion Discontinued 03/25/2024, 03/14, 03/23/2022, Additional history exists Hepatitis B Immunization Aged Out No longer eligible based on patient's age to complete this topic Human Papillomavirus (HPV) Immunization Aged Out No longer eligible based on patient's age to complete this topic Meningococcal Immunization (ACWY) Aged Out No longer eligible based on patient's age to complete this topic Rotavirus Immunization Aged Out No lo nger eligible based on patient's age to complete this topic Procedures Procedure Name Priority Date/Time Associated Diagnosis Comments CMP (COMPREHENSIVE METABOLIC PANEL) Routine 10/26/2024 IMMUNOGLOBULIN M (IGM) Routine 09/29/2024 COMPLETE BLOOD COUNT (CBC) WITHOUT DIFF Routine 09/29/2024 PSA DIAGNOSTIC,TOTAL Routine 03/25/2024 Prostate cancer (HCC) from Last 3 Months or Most Recently Relevant to Health Maintenance Results * CMP (COMPREHENSIVE METABOLIC PANEL) (10/26/2024) Blood Geovanni Aviles MD CHEMISTRY ORDERABLES Final Resul t * IMMUNOGLOBULIN M (IGM) (09/29/2024) Blood Vicky Rollins APN, EVELYN CHEMISTRY ORDERABLES Fin al Result * COMPLETE BLOOD COUNT (CBC) WITHOUT DIFF (09/29/2024) Blood Vicky Rollins APN, RADAR SCIENTIST HEMATOLOGY ORDERABLES Fi nal Result * PSA DIAGNOSTIC,TOTAL (03/25/2024) Blood Siddharth Maurer MD CHEMISTRY ORDERABLES Final Res ult CAN[facility]ER CENTRAL SUPPLY WORKER OF [facility] [address] [place] [address], from Last 3 Months or Most Recently Relevant to Health Maintenance Insurance [employer]IC[employer] RAILROAD Advance Directives * Full Code (Latest Code Status on File) Date Activated Date Inactivated Comments 11/07/2018 11:24 AM OV 9 Care Teams Rug Sizer Relationship Specialty Start Date End Date Diaz Saucedo MD PCP - General Family Medicine 09/19/15 Geovanni Aviles MD [address] [place] [address] [address] [place], [place] [phone] Consulting Physician Oncology 09/19/15 Siddharth Maurer MD [address] [place] [address] [address] [place], [place] 144421 Consulting Physician Radiation Oncology 03/20/17
--- OUTSIDE RECORDS SUMMARY | 2024-12-14 10:03 | XMS_ITS | Encounter Summary ---
Author Organization [facility] Address [address] [place] [address] Phone Care Team Providers Care Hammerer Name Role Phone Diaz Saucedo MD Primary Care Provider [phone] Geovanni Aviles MD Unavailable Siddharth Maurer MD Unavailable [phone] Elis Hidalgo RN Unavailable Unavailab le Reason for Visit * Reason Comments Medication Refill Encounter Details Date Type Department Care Team (Late Contact Info) Description 01/26/[address] [place] [address] Siddharth Maurer MD [address] [place] [address] Medication Refill Social History Tobacco Use [...] st Contact Info) Description 04/02/2025 8:30 AM ELECTRICAL ELECTRONICS ENGINEER Office Visit [address] [place] [phone] Siddharth Maurer MD [address] [place] [address] [address] [place] 164421 documented as of this encounter Visit Diagnoses Diagnosis Prostate cancer Malignant neoplasm of prostate Other male erectile dysfunction documented in this encounter Additional Health Concerns Assessment Noted Time PHQ-9 Depression Total Score: 0 12/16/19 21 9:34 AM CDT documented as of this encounter Care Teams Hammerer Relationship Specialty Start Date End Date Diaz Saucedo MD PCP - General Family Medicine 09/19/15 Geovanni Aviles MD [address] [place] [address] [place] 334995 [phone] Consulting Physician Oncology 09/19/15 Siddharth Maurer MD [address] [place] [address] [address] [place] [phone] Consulting Physician Radiation Oncology 03/20/17 Elis Hidalgo, RN [place] Oncology Nurse Navigator Oncology 07/15/19 03/26/24 documented as of this encounter
--- OUTSIDE RECORDS SUMMARY | 2024-12-14 10:03 | XMS_ITS | Encounter Summary ---
Author Organization [facility] Address [address] [place] [address] Phone Care Team Providers Care Fabrication Mig Welder Name Role Phone Diaz Saucedo MD Primary Care Provider [phone] Geovanni Aviles MD Unavailable Siddharth Maurer MD Unavailable [phone] Elis Hidalgo RN Unavailable Unavailab le Reason for Visit * Reason Onset Date Comments Medication Refill Medication Refill 12/20/2020 Encounter Details Date Type Department Care Team (Late st Contact Info) Description 11/29/2020 Refill [facility] [address] [place] [address] [place] [address] Siddharth Maurer MD [address] [place] [address] [place] [address] Medication Refill; Medication Refill Social History Tobacco [...] st Contact Info) Description 04/02/2025 8:30 AM COFFEE MACHINE TECHNICIAN Office Visit [address] [place] [phone] Siddharth Maurer MD [address] [place] [address] [address] [place] 392521 documented as of this encounter Visit Diagnoses Not on filedocumented in this encounter Additional Health Concerns Assessment Noted Time PHQ-9 Depression Total Score: 1 10/21/19 21 9:26 AM CDT documented as of this encounter Care Teams Fabrication Mig Welder Relationship Specialty Start Date End Date Diaz Saucedo MD PCP - General Family Medicine 09/19/15 Geovanni Aviles MD [address] [place] [address] [address] [place] [phone] Consulting Physician Oncology 09/19/15 Siddharth Maurer MD [address] [place] [address] [address] [place] [phone] Consulting Physician Radiation Oncology 03/20/17 Elis Hidalgo, ZAN [place] Oncology Nurse Navigator Oncology 07/15/19 03/26/24 documented as of this encounter
--- OUTSIDE RECORDS SUMMARY | 2024-12-14 10:03 | XMS_ITS | Encounter Summary ---
Author Organization [facility] Address [address] [place] [address] Phone Care Team Providers Care Global Mobility Specialist Name Role Phone Diaz Saucedo MD Primary Care Provider [phone] Geovanni Aviles MD Unavailable Siddharth Maurer MD Unavailable [phone] Elis Hidalgo RN Unavailable Unavailab le Reason for Visit * Reason Onset Date Comments Medication Refill Medication Refill 06/28/2020 Encounter Details Date Type Department Care Team (Late st Contact Info) Description 05/26/2020 Refill [facility] [address] [place] [address] [place] [address] Siddharth Maurer MD [address] [place] [address] [place] [address] Medication Refill; Medication Refill Social History Tobacco Use Types Packs/Day Years Used Date Smoking Tobacco: Never Smokeless Tobacco: Never Alcohol Use Standard Drinks/Week Comments No 0 (1 standard drink = 0.6 oz pur e alcohol) former PHQ-2 Answer Date Recorded Total Score - Questions 1-9 0 09/2020 Sex and Gender Information Value Date Recorded Sex Assigned at Male 11/13/2023 11:06 AM CDT Legal Sex Male 7:06 PM CDT Gender Identity Male 11/13/2023 11:06 AM CDT Sexual Orientation Not on file COVID-19 Exposure Response Date Recorded In the last month, have you been in contact with someone who was confirmed or suspected to have Coronavirus / COVID-19? No / Unsure 05/19/2020 9:25 AM CDT documented as of this encounter Plan of Treatment Upcoming Encounters Date Type Department Care Team (Late st Contact Info) Description 04/02/2025 8:30 AM ORACLE APPLICATION CONSULTANT Office Visit [address] [place] [address] Siddharth Maurer MD [address] [place] [address] [place] 903478 [phone] documented as of this encounter Visit Diagnoses Not on filedocumented in this encounter Additional Health Concerns Assessment Noted Time PHQ-9 Depression Total Score: 0 05/20/19 9:27 AM CDT documented as of this encounter Care Teams Global Mobility Specialist Relationship Specialty Start Date End Date Diaz Saucedo MD PCP - General Family Medicine 09/19/15 Geovanni Aviles MD [address] [place] [address] [address] [place] [phone] Consulting Physician Oncology 09/19/15 Siddharth Maurer MD [address] [place] [address] [address] [place] [phone] Consulting Physician Radiation Oncology 03/20/17 Elis Hidalgo, ZAN [place] Oncology Nurse Navigator Oncology 07/15/19 03/26/24 documented as of this encounter
--- OUTSIDE RECORDS SUMMARY | 2024-12-14 10:03 | XMS_ITS | Encounter Summary ---
Author Organization [facility] Address [address] [place] [address] Phone Care Team Providers Care Client Support Associate Name Role Phone Diaz Saucedo MD Primary Care Provider [phone] Geovanni Aviles MD Unavailable + Siddharth Maurer MD Unavailable [phone] Elis Hidalgo RN Unavailable Unavailab le Reason for Visit * Reason Comments Medication Refill Encounter Details Date Type Department Care Team (Late st Contact Info) Description 10/31/2021 Refill [facility] [address] [place] [address] [place] [address] Siddharth Maurer MD [address] [place] [address] [place] [address] Medication Refill Social History Tobacco [...] suspected to have Coronavirus/COVID-19? No / Unsure 10/19/2021 9:29 AM CDT documented as of this encounter Plan of Treatment Upcoming Encounters Date Type Department Care Team (Late st Contact Info) Description 04/02/2025 8:30 AM WASHHOUSE WORKER Office Visit [address] [place] [address] Siddharth Maurer MD [address] [place] [address] [place] 045346 [phone] documented as of this encounter Visit Diagnoses Diagnosis Prostate cancer Malignant neoplasm of prostate Other male erectile dysfunction documented in this encounter Additional Health Concerns Assessment Noted Time PHQ-9 Depression Total Score: 0 12/16/19 21 9:34 AM CDT documented as of this encounter Care Teams Client Support Associate Relationship Specialty Start Date End Date Diaz Saucedo MD PCP - General Family Medicine 09/19/15 Geovanni Aviles MD [address] [place] [address] [place] [phone] Consulting Physician Oncology 09/19/15 Siddharth Maurer MD [address] [place] [address] [place] [address] Consulting Physician Radiation Oncology 03/20/17 Elis Hidalgo RN [place] Oncology Nurse Navigator Oncology 07/15/19 03/26/24 documented as of this encounter
--- OUTSIDE RECORDS SUMMARY | 2024-12-14 10:03 | XMS_ITS | Encounter Summary ---
Author Organization [facility] Address [address] [place] [address] Phone Care Team Providers Care Clinical Trial Manager Name Role Phone Diaz Saucedo MD Primary Care Provider [phone] Geovanni Aviles MD Unavailable Siddharth Maurer MD Unavailable [phone] Elis Hidalgo RN Unavailable Unavailab le Reason for Visit * Reason Comments Medication Refill Encounter Details Date Type Department Care Team (Late st Contact Info) Description 08/29/2021 Refill [facility] [address] [place] [address] [place] [address] Siddharth Maurer MD [address] [place] [address] [place] [address] Medication Refill Social History Tobacco Use Types Packs/Day Years Used Date Smoking Tobacco: Never Smokeless Tobacco: Never Alcohol Use Standard Drinks/Week Comments No 0 (1 standard drink = 0.6 oz pur e alcohol) former PHQ-2 Answer Date Recorded Total Score - Questions 1-9 0 08/11 Sex and Gender Information Value Date Recorded Sex Assigned at Male 11/13/2023 11:06 AM CDT Legal Sex Male 7:06 PM CDT Gender Identity Male 11/13/2023 11:06 AM CDT Sexual Orientation Not on file COVID-19 Exposure Response Date Recorded In the last 10 days, have yo u been in contact with someone who was confirmed or suspected to have Coronavirus/COVID-19? No / Unsure 08/24/2021 9:24 AM CDT documented as of this encounter Plan of Treatment Upcoming Encounters Date Type Department Care Team (Late st Contact Info) Description 04/02/2025 8:30 AM BRIM GREASER OPERATOR Office Visit [address] [place] [address] Siddharth Maurer MD [address] [place] [address] [place] [phone] documented as of this encounter Visit Diagnoses Diagnosis Prostate cancer Malignant neoplasm of prostate Other male erectile dysfunction documented in this encounter Additional Health Concerns Assessment Noted Time PHQ-9 Depression Total Score: 0 12/16/19 21 9:34 AM CDT documented as of this encounter Care Teams Clinical Trial Manager Relationship Specialty Start Date End Date Diaz Saucedo MD PCP - General Family Medicine 09/19/15 Geovanni Aviles MD [address] [place] [address] [place] [id number] [phone] Consulting Physician Oncology 09/19/15 Siddharth Maurer MD [address] [place] [address] [place] [phone] Consulting Physician Radiation Oncology 03/20/17 Elis Hidalgo RN [place] Oncology Nurse Navigator Oncology 07/15/19 03/26/24 documented as of this encounter
--- OUTSIDE RECORDS SUMMARY | 2024-12-14 10:03 | XMS_ITS | Encounter Summary ---
Author Organization [facility] Address [address] [place] [address] Phone Care Team Providers Care Metal Riveting Machine Operator Name Role Phone Diaz Saucedo MD Primary Care Provider [phone] Geovanni Aviles MD Unavailable Siddharth Maurer MD Unavailable [phone] Elis Hidalgo RN Unavailable Unavailab le Reason for Visit * Reason Comments Medication Refill acyclovir refill Encounter Details Date Type Department Care Team (Late st Contact Info) Description 10/25/2020 Refill [facility] [address] [place] [address] Geovanni Aviles MD [address] [place] [address] [place] [address] Medication Refill (acyclovir refill) Social History Tobacco Use Types Packs/Day Years [...] encounter Miscellaneous Notes * Telephone Encounter - Mary Ann Wayne LPN - 10/26/2020 3:30 PM CDT Refill request for acyclovir. Last refill was 09/19/20 180 tabs no refills. Script sent to [facility]. documented in this encounter Plan of Treatment Upcoming Encounters Date Type Department Care Team (Late st Contact Info) Description 04/02/2025 8:30 AM COTTON PULLER Office Visit [address] [place] [address] Siddharth Maurer MD [address] [place] [address] [address] [place], [place] [address] [phone] documented as of this encounter Visit Diagnoses Not on filedocumented in this encounter Additional Health Concerns Assessment Noted Time PHQ-9 Depression Total Score: 1 10/21/19 21 9:26 AM CDT documented as of this encounter Care Teams Metal Riveting Machine Operator Relationship Specialty Start Date End Date Diaz Saucedo MD PCP - General Family Medicine 09/19/15 Geovanni Aviles MD [address] [place] [address] [address] [place] [phone] Consulting Physician Oncology 09/19/15 Siddharth Maurer MD [address] [place] [address] [place] [phone] Consulting Physician Radiation Oncology 03/20/17 Elis Hidalgo RN [place] Oncology Nurse Navigator Oncology 07/15/19 03/26/24 documented as of this encounter
--- OUTSIDE RECORDS SUMMARY | 2024-12-14 10:03 | XMS_ITS ---
Author Organization [facility] Address [address] [place] [address] Phone Care Team Providers Care Aerospace Quality Engineer Name Role Phone Diaz Saucedo MD Primary Care Provider Geovanni Aviles MD Unavailable Siddharth Maurer MD Unavailable [phone] Active Problems Problem Noted Date Diagnosed Date [...] 06/02/2015 Hepatomegalia 06/02/2015 Splenomegaly 06/02/2015 Hepatomegaly 06/02/2015 Current Treatment and Therapy Plans No current plan information found. Other Current Plans SUPPORT - Gammagard - [facility]* Plan Start Date:08/20/2020 Plan Provider:Geovanni Aviles MD Linked Problems Acquired hypogammaglobulinem ia Treatment Medications Current Day (Day 1, Cycle 36 - Planned for 11/26/2024) No medications scheduled. No medications schedul ed. Past Treatment and Therapy Plans ONCOLOGY TREATMENT Plan Name Start Date Discontinue Date Treatment Medications Discontinue Reason Plan Provider Cycles CLL - RITUXIMAB - [facility] 0 10/24/2022 riTUXimab-ABBS (TRUXIMA) infusion Therapy Complete Geovanni Aviles MD 6 of 6 cycles started ORAL CHEMO TREATMENT Plan Name Start Date Discontinue Date Treatment Medications Discontinue Reason Plan Provider Cycles CLL - VENETOCLAX (VENCLEXTA) ORAL CHEMO - [facility] 0 05/16/2021 venetoclax (VENCLEXTA) Plan Clean Up Geovanni Aviles MD Treatment not started CLL - IBRUTINIB (IMBRUVICA) - [facility] 10/15/2018 12/18/2019 ibrutinib (IMBRUVICA) Therapy Complete Geovanni Aviles MD 6 (7 of 8 cycles) started
--- OUTSIDE RECORDS SUMMARY | 2024-12-14 10:03 | XMS_ITS | Encounter Summary ---
Author Organization [facility] Address [address] [place] [address] Phone Care Team Providers Care Saturator Name Role Phone Diaz Saucedo MD Primary Care Provider [phone] Geovanni Aviles MD Unavailable Siddharth Maurer MD Unavailable [phone] Elis Hidalgo RN Unavailable Unavailab le Reason for Visit * Reason Comments Medication Refill Encounter Details Date Type Department Care Team (Late Contact Info) Description 10/03/[address] [place] [address] Siddharth Maurer MD [address] [place] [address] Medication Refill Social History Tobacco Use [...] st Contact Info) Description 04/02/2025 8:30 AM POULTRY CULLER Office Visit [address] [place] [phone] Siddharth Maurer MD [address] [place] [address] [address] [place] [phone] documented as of this encounter Visit Diagnoses Diagnosis Prostate cancer Malignant neoplasm of prostate Other male erectile dysfunction documented in this encounter Additional Health Concerns Assessment Noted Time PHQ-9 Depression Total Score: 0 12/16/19 21 9:34 AM CDT documented as of this encounter Care Teams Saturator Relationship Specialty Start Date End Date Diaz Saucedo MD PCP - General Family Medicine 09/19/15 Geovanni Aviles MD [address] [place] [address] [place] [phone] Consulting Physician Oncology 09/19/15 Siddharth Maurer MD [address] [place] [address] [address] [place] [phone] Consulting Physician Radiation Oncology 03/20/17 Elis Hidalgo, RN [place] Oncology Nurse Navigator Oncology 07/15/19 03/26/24 documented as of this encounter
--- OUTSIDE RECORDS SUMMARY | 2024-12-14 10:03 | XMS_ITS | Encounter Summary ---
Author Organization [facility] Address [address] [place] [address] Phone Care Team Providers Care Mechanical Estimator Name Role Phone Diaz Saucedo MD Primary Care Provider [phone] Geovanni Aviles MD Unavailable Siddharth Maurer MD Unavailable [phone] Elis Hidalgo RN Unavailable Unavailab le Reason for Visit * Reason Onset Date Comments Medication Refill Medication Refill 07/29/2020 Encounter Details Date Type Department Care Team (Late st Contact Info) Description 07/06/2020 Refill [facility] [address] [place] [address] [place] [address] Siddharth Maurer MD [address] [place] [address] [place] [address] Medication Refill; Medication Refill Social History Tobacco Use Types Packs/Day Years Used Date Smoking Tobacco: Never Smokeless Tobacco: Never Alcohol Use Standard Drinks/Week Comments No 0 (1 standard drink = 0.6 oz pur e alcohol) former PHQ-2 Answer Date Recorded Total Score - Questions 1-9 0 05/0 07/2020 Sex and Gender Information Value Date Recorded Sex Assigned at Male 11/13/2023 11:06 AM CDT Legal Sex Male 7:06 PM CDT Gender Identity Male 11/13/2023 11:06 AM CDT Sexual Orientation Not on file COVID-19 Exposure Response Date Recorded In the last month, have you been in contact with someone who was confirmed or suspected to have Coronavirus / COVID-19? No / Unsure 06/16/2020 9:29 AM CDT documented as of this encounter Plan of Treatment Upcoming Encounters Date Type Department Care Team (Late st Contact Info) Description 04/02/2025 8:30 AM STONE GANG SAWYER Office Visit [address] [place] [address] Siddharth Maurer MD [address] [place] [address] [place] [address] [phone] documented as of this encounter Visit Diagnoses Not on filedocumented in this encounter Additional Health Concerns Assessment Noted Time PHQ-9 Depression Total Score: 0 06/17/19 9:38 AM CDT documented as of this encounter Care Teams Mechanical Estimator Relationship Specialty Start Date End Date Diaz Saucedo MD PCP - General Family Medicine 09/19/15 Geovanni Aviles MD [address] [place] [address] [place] [address] [phone] Consulting Physician Oncology 09/19/15 Siddharth Maurer MD [address] [place] [address] [address] [place] [phone] Consulting Physician Radiation Oncology 03/20/17 Elis Hidalgo, [place] Oncology Nurse Navigator Oncology 07/15/19 03/26/24 documented as of this encounter
[2024-12-14 10:36] LABS: Hematocrit 28.0 % (42.0-52.0); Hemoglobin 8.5 g/dL (14.0-18.0); Immature Granulocyte Percent A 3.8 % (0-0.5); Lymphocytes Absolute Auto 1.07 K/mm3 (0.9-3.2); Mean Corpuscular HGB Conc 30.4 g/dl (32-36); Mean Corpuscular Hemoglobin 25.2 pg (26-34); Mean Corpuscular Volume 83.1 fl (80-100); Nucleated Red Blood Cells Absolute Auto 0.000 K/mm3 (0.0-0.012); Nucleated Red Blood Cells Perc 0.0 % (0.0-0.2); Platelet Count Result 202 k/mm3 (150-375); Red Blood Count 3.37 M/mm3 (4.6-6.20); White Blood Count 9.3 K/mm3 (4.5-10.0)
[2024-12-14 10:55] LABS: Anion Gap 5 mmol/L (4-12); Blood Urea Nitrogen 32 mg/dL (9-20); Calcium 7.8 mg/dL (8.4-10.2); Carbon Dioxide 32 mmol/L (22-30); Chloride 91 mmol/L (98-107); Estimated CRCL calculation 60 ml/min; Estimated Glomerular Filt Rate > 60; Glucose 116 mg/dL (65-110); Potassium 3.9 mmol/L (3.4-5.0); Sodium 128 mmol/L (137-145)
[2024-12-14 10:57] VITALS: BP 106/60; PULSE 110; RESP 20; O2SAT 95
[2024-12-14 10:58] LABS: INR 3.2; Prothrombin Time 31.5 Seconds (11.1-14.7)
[2024-12-14 11:16] VITALS: PULSE 111; RESP 22
[2024-12-14 11:24] VITALS: PULSE 105; RESP 23
[2024-12-14 12:18] VITALS: BP 115/69; PULSE 111; RESP 19; O2SAT 99
--- NOTE | 2024-12-14 13:15 | ED_ITS ---
HPI - Epistaxis General Chief complaint: Epistaxis Stated complaint: nosebleed Time Seen by Provider: 12/14/24 09:18 History of Present Illness HPI Narrative: Patient had recent cardiac procedure now on warfarin presents here with ongoing nosebleed for the past hour. Outside facility attempted TXA soaked gauze and clamp, however patient still having ongoing nosebleed. Related Data Home Medications ?Medication ?Instructions ?Recorded ?Confirmed ?Last Taken ?Type acetaminophen 650 mg/20.3 mL oral 650 mg feeding tube Q6H PRN fever 12/04/24 12/04/24 12/04/24 12:50 History solution or pain albuterol sulfate 90 mcg/actuation 2 inh inhalation Q4 H PRN shortness 12/04/24 12/04/24 Unknown History aerosol inhaler (Ventolin HFA) of breath or wheezing amiodarone 200 mg tablet 200 mg feeding tube DAILY 12/04/24 12/04/24 08:45 History aspirin 81 mg tablet 81 mg PO DAILY 12/04/2411/1212/04/24 08:45 History atorvastatin 40 mg tablet (Lipitor) 40 mg feeding tube HS 12/04/24 12/04/24 12/03/24 20:20 History bumetanide 2 mg tablet 2 mg feeding tube DAILY 11/1212/04/24 12/04/24 08:45 History digoxin 50 mcg/mL (0.05 mg/mL) 62.5 mcg feeding tube D AILY 12/04/24 12/04/24 12/04/24 08:45 History oral solution enoxaparin 80 mg/0.8 mL 70 mg subcut Q12H 12/04/24 1 12/04/24 15:45 History subcutaneous syringe (Lovenox) losartan 25 mg tablet (Cozaar) 25 mg feeding tube JOSEPHINE Y 12/04/24 12/04/24 12/04/24 15:45 History melatonin 3 mg capsule 3 mg PO HS PRN sleep 5 12/04/24 12/03/24 20:20 History metoprolol succinate 25 mg 25 mg PO DAILY 12/04/24 Unknown History tablet,extended release 24 hr (Toprol XL) metoprolol succinate 50 mg 50 mg PO DAILY 12/04/24 Unknown History tablet,extended release 24 hr (Toprol XL) multivit and minerals-ferrous 15 ml feeding tube DAILY 12/04/24 12/04/24 12/04/24 08:45 History gluconate 9 mg iron/15 mL oral liquid (multivitamin with minerals) oxycodone 5 mg/5 mL oral solution 5 mg feeding tube Q4 H PRN pain 12/04/24 12/04/24 12/04/24 12:50 History oxycodone 5 mg/5 mL oral solution 10 mg feeding tube Q 4H PRN pain 12/04/24 12/04/24 12/04/24 12:50 History polyethylene glycol 3350 17 17 g feeding tube DAILY MA N 12/04/24 12/04/24 Unknown History gram/dose oral powder (Miralax) constipation sennosides 8.6 mg-docusate sodium 2 tab-cap PO DAILY P RN constipation 12/04/24 12/04/24 Unknown History 50 mg tablet (Senna with Docusate Sodium) spironolactone 25 mg/5 mL oral 12.5 mg feeding tube DA RAYNA 12/04/24 12/04/24 12/04/24 08:45 History suspension trazodone 50 mg tablet 25 mg feeding tube HS PRN sl eep 12/04/24 12/04/24 12/03/24 20:25 History warfarin 5 mg tablet 5 mg feeding tube DAILY@1700 12/04/24 12/05/24 12/04/24 16:00 History Allergies Allergy/AdvReac Type Severity Reaction Status Date / Time No Known Allergies Allergy Verified 12/05/24 02:43 Review of Systems 2 Review of Systems: All systems reviewed & are unremarkable except as noted in HPI and below [facility] Past Medical History Medical History (Updated 12/14/24 @ 11:51 by Audrey Mccall MD) Dysphonia Charcot Lorelei Tooth muscular atrophy COPD (chronic obstructive pulmonary disease) CLL (chronic lymphocytic leukemia) Hyperlipidemia Systolic heart failure Atrial fibrillation Coronary artery disease Social History Social History Smoking status: Never smoker Lack of Transportation: No Lack of Food: Never True Current Housing: I Have Housing Concerned About Future Housing: No Difficulty Paying Gas/Electric Bills: No Difficulty Paying for Meds: No Currently Unemployed: No Education: Decline to Answer Difficulty w/ Childcare or Family Care: No Spiritual care concerns: No Exam 2 Narrative: EXAMINATION OF ORGAN SYSTEMS/BODY AREAS: Constitutional: Vital signs per nursing GENERAL:[No acute distress, non-toxic appearing.] HEAD: Normal with no signs of head trauma. EYES: EOMI, conjunctiva normal ENT: Nasal clamp on, dry blood on face LUNGS: Some wheezing HEART: [Regular rate and rhythm] ABD: [Soft], [nontender to palpation] EXT: Normal range of motion SKIN: [No rashes or lesions.] NEURO: [Alert and oriented x 3. No gross focal sensory or strength deficits.] PSYCH: Normal affect Course Vital Signs Vital signs: Vital Signs Temperature 97.6 F 12/14/24 09:14 Pulse Rate 100 12/14/24 09:14 Respiratory Rate 24 H 12/14/24 09:14 Blood Pressure 109/64 12/14/24 09:14 Pulse Oximetry 96 12/14/24 09:14 Oxygen Delivery Room Air 12/14/24 09:14 Temperature 97.6 F 12/14/24 09:14 Pulse Rate 111 H 12/14/24 12:18 Respiratory Rate 19 12/14/24 12:18 Blood Pressure 115/69 12/14/24 12:18 Pulse Oximetry 99 12/14/24 12:18 Oxygen Delivery Room Air 12/14/24 09:14 Procedures Epistaxis Control right: Epistaxis Control Date: 12/14/24 Epistaxis Control Time: 13:17 Nose Prepped With: lidocaine and oxymetazoline Direct Inspection: unable to visualize Clots Removed by: blowing nose and manually Device Inserted: hemostatic balloon Device Size: 7 Patient Tolerated Procedure: well and no complications MDM - Epistaxis MDM Narrative Medical decision making narrative: Patient presenting here with ongoing nosebleed, after clamp removed patient continues to have ongoing bleeding, trialed Afrin without improvement, I did discuss using rhino rocket and patient agreeable to this. Lidocaine used for some numbing, a large amount of clot was removed by myself manually and with patient blowing his nose, after which the rhino rocket was inserted, and inflated over the course of the next hour until patient no longer having active bleeding. I did obtain blood work to ensure at baseline, and I will have him follow up with ENT, he thinks that he might be going home to his home town about 2 hours away, I did let him know then he can go back to the emergency room anywhere to get it removed in 2 days. Patient agreeable to plan with return precautions. Lab Data 12/14/24 10:28 12/14/24 10:28 Labs: Lab Results 12/14/24 Range/Units 10:28 WBC 9.3 (4.5-10.0) K/mm3 RBC 3.37 L (4.6-6.20) M/mm3 Hgb 8.5 L (14.0-18.0) g/dL Hct 28.0 L (42.0-52.0) % MCV 83.1 (80-100) fl MCH 25.2 L (26-34) pg MCHC 30.4 L (32-36) g/dl RDW 16.7 H (11.5-14.5) % Plt Count 202 (150-375) k/mm3 MPV 9.8 (7.4-10.4) fl Immature Gran % (Auto) 3.8 H (0-0.5) % Neut % (Auto) 77.7 H (45.5-73.1) % Lymph % (Auto) 11.6 L (18.3-44.2) % Ferry % (Auto) 5.1 (2.6-8.5) % Eos % (Auto) 1.4 (0-4.4) % Baso % (Auto) 0.4 (0.2-1.2) % Lymph # (Auto) 1.07 (0.9-3.2) K/mm3 Ferry # (Auto) 0.5 (0.1-0.6) K/mm3 Eos # (Auto) 0.1 (0-0.3) K/mm3 Baso # (Auto) 0.0 (0.0-0.1) K/mm3 Abs Immat Gran (auto) 0.35 H (0.00-0.031) K/mm3 Absolute Neuts (auto) 7.2 H (1.3-6.7) K/mm3 Absolute Nucleated RBC 0.000 (0.0-0.012) K/mm3 Nucleated RBC % 0.0 (0.0-0.2) % PT 31.5 H (11.1-14.7) Seconds INR 3.2 Sodium 128 L (137-145) mmol/L Potassium 3.9 (3.4-5.0) mmol/L Chloride 91 L (98-107) mmol/L Carbon Dioxide 32 H (22-30) mmol/L Anion Gap 5 (4-12) mmol/L BUN 32 H (9-20) mg/dL Creatinine 0.90 (0.7-1.3) mg/dL Estim Creat Clear Calc 60 ml/min Estimated GFR > 60 (59 - ) Glucose 116 H (65-110) mg/dL Calcium 7.8 L (8.4-10.2) mg/dL Discharge Plan Discharge Clinical Impression: Acute anterior epistaxis Patient Disposition: [facility] Living Condition: Stable Instructions: Nosebleed (ED) Additional Instructions: You will need to follow-up with the ENT in the next 2-3 days to have the packing removed. If you are unable to get into their office in the next 2-3 days, you can come back to the emergency room to have the packing removed. You can always return to the ER for any further issues. Patient Language: Lao Prescriptions: No Action acetaminophen 650 mg/20.3 mL solution 650 mg feeding tube Q6H PRN (Reason: fever or pain) amiodarone 200 mg tablet 200 mg feeding tube DAILY aspirin 81 mg tablet 81 mg PO DAILY Rx Instructions: per G-tube atorvastatin [Lipitor] 40 mg tablet 40 mg feeding tube HS bumetanide 2 mg tablet 2 mg feeding tube DAILY digoxin 50 mcg/mL (0.05 mg/mL) solution 62.5 mcg feeding tube DAILY enoxaparin [Lovenox] 80 mg/0.8 mL syringe 70 mg subcut Q12H Patient Comments: till inr at goal 2-3 Rx Instructions: inject 0.7 ml Q 12H melatonin 3 mg capsule 3 mg PO HS PRN (Reason: sleep) Rx Instructions: per G-tube metoprolol succinate [Toprol XL] 25 mg tablet extended release 24 hr 25 mg PO DAILY Rx Instructions: per G-tube, start 12/05/2024 metoprolol succinate [Toprol XL] 50 mg tablet extended release 24 hr 50 mg PO DAILY Rx Instructions: per G-tube, start 12/05/2024 [id number] gluconate [multivitamin with minerals] 9 mg iron/15 mL liquid 15 ml feeding tube DAILY oxycodone 5 mg/5 mL solution 5 mg feeding tube Q4H PRN (Reason: pain) Rx Instructions: moderate pain oxycodone 5 mg/5 mL solution 10 mg feeding tube Q4H PRN (Reason: pain) Rx Instructions: severe pain polyethylene glycol 3350 [Miralax] 17 gram/dose powder 17 g feeding tube DAILY PRN (Reason: constipation) sennosides-docusate sodium [Senna with Docusate Sodium] 8.6-50 mg tablet 2 tab-cap PO DAILY PRN (Reason: constipation) Rx Instructions: per G-tube spironolactone 25 mg/5 mL suspension 12.5 mg feeding tube DAILY trazodone 50 mg tablet 25 mg feeding tube HS PRN (Reason: sleep) warfarin 5 mg tablet 5 mg feeding tube DAILY@1700 Rx Instructions: INR goal 2-3 losartan [Cozaar] 25 mg tablet 25 mg feeding tube DAILY albuterol sulfate [Ventolin HFA] 90 mcg/actuation HFA aerosol inhaler 2 inh inhalation Q4H PRN (Reason: shortness of breath or wheezing) Follow-up/Referrals: Shalom Anne MD [Physician, Ear, Nose, Throat] - 2 Days Referral Note: Packed with rhino rocket 12/14, will need removal by 12/16 PHYSICIAN NOT ON STAFF,NONSTAFF [Primary Care Provider]
== END 2024-12-14 13:47 ==
PROVIDERS: Emergency Provider Emergency Medicine
DX: R04.0 Epistaxis (principal); J44.9 Chronic obstructive pulmonary disease, unspecified; E78.5 Hyperlipidemia, unspecified; I48.91 Unspecified atrial fibrillation; I25.10 Atherosclerotic heart disease of native coronary artery without angina pectoris; I50.20 Unspecified systolic (congestive) heart failure; G60.0 Hereditary motor and sensory neuropathy; C91.10 Chronic lymphocytic leukemia of B-cell type not having achieved remission; Z95.1 Presence of aortocoronary bypass graft; Z79.01 Long term (current) use of anticoagulants; Z79.899 Other long term (current) drug therapy; Z79.82 Long term (current) use of aspirin
CPT/HCPCS: 30901; 36415; 43762; 80048; 85025; 85610; 94640; 99283; A9270

== ENCOUNTER 2024-12-15 03:14 | Emergency (ER) | payer MEDICARE, SELFPAY ==
[2024-12-15] VITALS (8 sets, daily range): BP systolic 103–121; BP diastolic 63–75; PULSE 110–114; RESP 16–22; TEMP 36.7; O2SAT 91–99
--- NOTE | 2024-12-15 06:15 | ED.GENADULT ---
HPI - General Adult General Chief complaint: Unspecified Stated complaint: Dislodged G tube Time Seen by Provider: 12/15/24 06:02 History of Present Illness HPI narrative: 69-year-old male presenting for G-tube dislodgement. Patient states he has had the G-tube placed last month when he was up near [place] hospitalized for CABG procedure. Patient no longer uses the PEG tube and is eating and drinking appropriately with a full diet. Taking all his medications without any choking or vomiting. No longer an aspiration risk according to him. Has not used a G-tube in quite some time. Asking for us to remove the G-tube as already dislodged. Does not want to replace G-tube in states that he does not need any more. No other symptoms or illnesses. Was recently here for a nose bleed which has stopped and still has the rhino rocket in place that he will follow-up outpatient ENT. No other symptoms or complaints. Overall well-appearing. Related Data Home Medications ?Medication ?Instructions ?Recorded ?Confirmed ?Last Taken ?Type acetaminophen 650 mg/20.3 mL oral 650 mg feeding tube Q6H PRN fever 12/04/24 12/04/24 12/04/24 12:50 History solution or pain albuterol sulfate 90 mcg/actuation 2 inh inhalation Q4H PRN shortness 12/04/24 12/04/24 Unknown History aerosol inhaler (Ventolin HFA) of breath or wheezing amiodarone 200 mg tablet 200 mg feeding tube DAILY 12/04/24 12/04/24 12/04/24 08:45 History aspirin 81 mg tablet 81 mg PO DAILY 12/04/24 12/04/24 12/04/24 08:45 History atorvastatin 40 mg tablet (Lipitor) 40 mg feeding tube HS 12/04/24 12/04/24 12/03/24 20:20 History bumetanide 2 mg tablet 2 mg feeding tube DAILY 12/04/24 12/04/24 12/04/24 08:45 History digoxin 50 mcg/mL (0.05 mg/mL) 62.5 mcg feeding tube DAILY 12/04/24 12/04/24 12/04/24 08:45 History oral solution enoxaparin 80 mg/0.8 mL 70 mg subcut Q12H 12/04/24 12/04/24 12/04/24 15:45 History subcutaneous syringe (Lovenox) losartan 25 mg tablet (Cozaar) 25 mg feeding tube DAILY 12/04/24 12/04/24 12/04/24 15:45 History melatonin 3 mg capsule 3 mg PO HS PRN sleep 12/04/24 12/04/24 12/03/24 20:20 History metoprolol succinate 25 mg 25 mg PO DAILY 12/04/24 12/04/24 Unknown History tablet,extended release 24 hr (Toprol XL) metoprolol succinate 50 mg 50 mg PO DAILY 12/04/24 12/04/24 Unknown History tablet,extended release 24 hr (Toprol XL) multivit and minerals-ferrous 15 ml feeding tube DAILY 12/04/24 12/04/24 12/04/24 08:45 History gluconate 9 mg iron/15 mL oral liquid (multivitamin with minerals) oxycodone 5 mg/5 mL oral solution 5 mg feeding tube Q4H PRN pain 12/04/24 12/04/24 12/04/24 12:50 History oxycodone 5 mg/5 mL oral solution 10 mg feeding tube Q4H PRN pain 12/04/24 12/04/24 12/04/24 12:50 History polyethylene glycol 3350 17 17 g feeding tube DAILY PRN 12/04/24 12/04/24 Unknown History gram/dose oral powder (Miralax) constipation sennosides 8.6 mg-docusate sodium 2 tab-cap PO DAILY PRN constipation 12/04/24 12/04/24 Unknown History 50 mg tablet (Senna with Docusate Sodium) spironolactone 25 mg/5 mL oral 12.5 mg feeding tube DAILY 12/04/24 12/04/24 12/04/24 08:45 History suspension trazodone 50 mg tablet 25 mg feeding tube HS PRN sleep 12/04/24 12/04/24 12/03/24 20:25 History warfarin 5 mg tablet 5 mg feeding tube DAILY@1700 12/04/24 12/05/24 12/04/24 16:00 History Allergies Allergy/AdvReac Type Severity Reaction Status Date / Time No Known Allergies Allergy Verified 12/05/24 02:43 Review of Systems Review of Systems: As reviewed above in [facility] Past Medical History Medical History Dysphonia Charcot Lorelei Tooth muscular atrophy COPD (chronic obstructive pulmonary disease) CLL (chronic lymphocytic leukemia) Hyperlipidemia Systolic heart failure Atrial fibrillation Coronary artery disease Social History Social History Smoking status: Never smoker Lack of Transportation: No Lack of Food: Never True Current Housing: I Have Housing Concerned About Future Housing: No Difficulty Paying Gas/Electric Bills: No Difficulty Paying for Meds: No Currently Unemployed: No Education: Decline to Answer Difficulty w/ Childcare or Family Care: No Spiritual care concerns: No Exam Narrative: GENERAL: [Well-appearing, well-nourished, and in no acute distress.] HEAD: [Normocephalic, atraumatic.] EYES: [PERRLA and EOMI.] ENT: Nares clear, no rhinorrhea or epistaxis. Mucous membranes moist. NECK: Supple. CHEST: Sternotomy scar clean dry and intact previous chest tube sites clean dry and intact. HEART: [Regular rate and rhythm]. No murmur heard. [Normal peripheral pulses.] ABDOMEN: Soft nontender nondistended abdomen. No peritonitis rigidity or guarding. Gastrostomy tube dislodged hanging on by 1 single suture. No purulent drainage, no bleeding. Gastric contents no longer draining. EXTREMITIES: Normal range of motion. [No edema.] SKIN: Warm, dry, no rash. NEURO: [No focal deficits]. Alert and oriented [x3.] PSYCH: [Normal mood and affect.] Course Vital Signs Vital signs: Vital Signs Temperature 36.7 C 12/15/24 03:15 Pulse Rate 112 H 12/15/24 03:15 Respiratory Rate 16 12/15/24 03:15 Blood Pressure 111/64 12/15/24 03:15 Pulse Oximetry 92 12/15/24 03:15 Oxygen Delivery Room Air 12/15/24 03:15 Temperature 36.7 C 12/15/24 03:15 Pulse Rate 112 H 12/15/24 03:15 Respiratory Rate 16 12/15/24 03:15 Blood Pressure 111/64 12/15/24 03:15 Pulse Oximetry 92 12/15/24 03:15 Oxygen Delivery Room Air 12/15/24 03:15 Medical Decision Making MDM Narrative Medical decision making narrative: 69-year-old male presenting for G-tube dislodgement. Patient states he has had the G-tube placed last month when he was up near [place] hospitalized for CABG procedure. Patient no longer uses the PEG tube and is eating and drinking appropriately with a full diet. Taking all his medications without any choking or vomiting. No longer an aspiration risk according to him. Has not used a G-tube in quite some time. Asking for us to remove the G-tube as already dislodged. Does not want to replace G-tube in states that he does not need any more. No other symptoms or illnesses. Was recently here for a nose bleed which has stopped and still has the rhino rocket in place that he will follow-up outpatient ENT. No other symptoms or complaints. Overall well-appearing. Soft nontender nondistended abdomen. No peritonitis rigidity or guarding. Gastrostomy tube dislodged hanging on by 1 single suture. No purulent drainage, no bleeding. Gastric contents no longer draining. I discussed with the patient replacement procedure and he declined. States that they do not use the G-tube and just wants it removed so he can go back home. Given that he no longer uses the tube and has full oral intake in diet without any concern for aspiration according to the patient we did oblige and G-tube was fully removed and discharged via EMS back to his rehab facility. Patient given return precautions. Medical Records Medical records reviewed: Yes I reviewed the external patient's medical records. Vital Signs Vital Signs: Vital Signs Temperature 36.7 C 12/15/24 03:15 Pulse Rate 112 H 12/15/24 03:15 Respiratory Rate 16 12/15/24 03:15 Blood Pressure 111/64 12/15/24 03:15 Pulse Oximetry 92 12/15/24 03:15 Oxygen Delivery Room Air 12/15/24 03:15 Temperature 36.7 C 12/15/24 03:15 Pulse Rate 112 H 12/15/24 03:15 Respiratory Rate 16 12/15/24 03:15 Blood Pressure 111/64 12/15/24 03:15 Pulse Oximetry 92 12/15/24 03:15 Oxygen Delivery Room Air 12/15/24 03:15 Discharge Plan Discharge Clinical Impression: Dislodged gastrostomy tube Patient Disposition: NH Intermediate/Asst Living Condition: Stable Instructions: Antibiotic Form Additional Instructions: Return at any time with any urgent or emergent concerns. Follow-up with your regular care providers. If you need a G-tube placed contact your primary care provider. Patient Language: [place] Island[place] Prescriptions: No Action acetaminophen 650 mg/20.3 mL solution 650 mg feeding tube Q6H PRN (Reason: fever or pain) amiodarone 200 mg tablet 200 mg feeding tube DAILY aspirin 81 mg tablet 81 mg PO DAILY Rx Instructions: per G-tube atorvastatin [Lipitor] 40 mg tablet 40 mg feeding tube HS bumetanide 2 mg tablet 2 mg feeding tube DAILY digoxin 50 mcg/mL (0.05 mg/mL) solution 62.5 mcg feeding tube DAILY enoxaparin [Lovenox] 80 mg/0.8 mL syringe 70 mg subcut Q12H Patient Comments: till inr at goal 2-3 Rx Instructions: inject 0.7 ml Q 12H melatonin 3 mg capsule 3 mg PO HS PRN (Reason: sleep) Rx Instructions: per G-tube metoprolol succinate [Toprol XL] 25 mg tablet extended release 24 hr 25 mg PO DAILY Rx Instructions: per G-tube, start 12/05/2024 metoprolol succinate [Toprol XL] 50 mg tablet extended release 24 hr 50 mg PO DAILY Rx Instructions: per G-tube, start 12/05/2024 [id number] gluconate [multivitamin with minerals] 9 mg iron/15 mL liquid 15 ml feeding tube DAILY oxycodone 5 mg/5 mL solution 5 mg feeding tube Q4H PRN (Reason: pain) Rx Instructions: moderate pain oxycodone 5 mg/5 mL solution 10 mg feeding tube Q4H PRN (Reason: pain) Rx Instructions: severe pain polyethylene glycol 3350 [Miralax] 17 gram/dose powder 17 g feeding tube DAILY PRN (Reason: constipation) sennosides-docusate sodium [Senna with Docusate Sodium] 8.6-50 mg tablet 2 tab-cap PO DAILY PRN (Reason: constipation) Rx Instructions: per G-tube spironolactone 25 mg/5 mL suspension 12.5 mg feeding tube DAILY trazodone 50 mg tablet 25 mg feeding tube HS PRN (Reason: sleep) warfarin 5 mg tablet 5 mg feeding tube DAILY@1700 Rx Instructions: INR goal 2-3 losartan [Cozaar] 25 mg tablet 25 mg feeding tube DAILY albuterol sulfate [Ventolin HFA] 90 mcg/actuation HFA aerosol inhaler 2 inh inhalation Q4H PRN (Reason: shortness of breath or wheezing) Follow-up/Referrals: PHYSICIAN NOT ON STAFF,NONSTAFF [Non-Staff] Time of Disposition: 06:08
== END 2024-12-15 09:55 ==
LOC: ANHED 06:23
PROVIDERS: Emergency Provider Student in an Organized Health Care Education/Training Program
DX: Z43.1 Encounter for attention to gastrostomy (principal); J44.9 Chronic obstructive pulmonary disease, unspecified; C91.10 Chronic lymphocytic leukemia of B-cell type not having achieved remission; I50.20 Unspecified systolic (congestive) heart failure; I48.91 Unspecified atrial fibrillation; I25.10 Atherosclerotic heart disease of native coronary artery without angina pectoris; E78.5 Hyperlipidemia, unspecified
CPT/HCPCS: 99281